=== PATIENT | male | born 1945 | race Caucasian/White ===

== ENCOUNTER 2016-07-30 15:45 | Inpatient (IN) | payer OTHER ==
[2016-07-30] MEDS ORDERED: DUONEB 0.5 MG/3 MG NEB ONE (16:00)
[2016-07-30] MEDS ORDERED: SOLU-Medrol 125 MG VIAL IVP ONE (16:02)
[2016-07-30] MEDS ORDERED: SOLU-Medrol 125 MG VIAL ONE (16:03)
[2016-07-30 16:39] LABS: BASOPHILS # (AUTO) 0.3 X10^3/uL (0.0-0.1); BASOPHILS % (AUTO) 1.2 % (0.2-1.0); EOSINOPHILS # (AUTO) 0.1 x10^3/uL (0.0-0.2); EOSINOPHILS % (AUTO) 0.3 % (0.9-2.9); HEMATOCRIT 42.1 % (42.0-54.0); HEMOGLOBIN 14.3 g/dL (13.5-18.0); LYMPHOCYTES # (AUTO) 2.8 X10^3/uL (1.3-2.9); LYMPHOCYTES % (AUTO) 11.5 % (21.0-51.0); MEAN CORPUSCULAR HEMOGLOBIN 28.2 pg (27.0-34.0); MEAN PLATELET VOLUME 9.5 fL (7.4-11.0); MONOCYTES # (AUTO) 1.1 x10^3/uL (0.3-0.8); MONOCYTES % (AUTO) 4.4 % (0.0-13.0); NEUTROPHILS # (AUTO) 19.9 x10^3/uL (2.2-4.8); NEUTROPHILS % (AUTO) 82.6 % (42.0-75.0); PLATELET COUNT 259 X10^3/uL (150.0-450.0); RED BLOOD COUNT 5.08 X10^6/uL (4.7-6.0); RED CELL DISTRIBUTION WIDTH 14.2 % (11.6-16.5)
--- NOTE | 2016-07-30 16:52 | DR.GENAD ---
HPI - PCP Primary Care Physician: NFD - HPI Comment HPI Comment: SICK FOR QNE AND HALF WEEK WITH FEVER, COUGH AND CHEST PAIN. GIVEN ANTIBIOTICS ANF PREDNISON, NO IMPROVEMENT. PATIENT HAVE FAIL OUT PATIENT TREATMENT. HIS CONDITION IS GETTING WORSE. - Complaint/Symptoms Chief Complaint Doctors Comments: INCREASING SOB, COUGH AND FEVER. Chief Complaint:: PT C/O SOB, C/C/C THAT HAS BEEN GOING ON FOR THE PAST WEEK AND A HALF. PT STATES HE HAS BEEN BEING TREATED WITH ANTIBIOTICS AND STERIODS FROM [facility]. PT'S STATES HE HAS WENT AND SEEN HIS LUNG DOCTOR THIS PAST WEEK. - Nurses notes reviewed Nurses Notes Review: Yes - Source History Provided: Patient - Mode of Arrival Mode of Arrival: Ambulatory - Timing Onset of Chief Complaint: 07/21/16 Came on: Gradually - Duration Duration: Constant Duration: Days - Severity Severity: Moderate PMH - PMH Past Medical History: Yes Past Medical History: COPD, Diabetes, Dyslipidemia, GERD, Hyperthyroidism Past Surgical History: Yes Surgical History: Appendectomy, Ortho Surgery - Family History History of Family Medical Conditions: No - Social History Does any household member use tobacco: No Alcohol Use: None Do you use any recreational Drugs:: No Lives With: Family Lives Where: Home - infectious screening In the last 2 months have you had wt loss of >10#?: NO Have you had fever, night sweats or hemotysis?: No Have you traveled outside the country in the last 6 months?: No Isolation: Standard ROS - Review of Systems Constitutional: Chills, Fever, Weakness, Fatigue, Loss of Appetite. negative: Diaphoresis Eyes: No Symptoms Reported. negative: Eye Pain, Discharge ENTM: Ear Pain, Nose Discharge, Nose Congestion. negative: Throat Pain Respiratoy: Productive Cough, Short of Breath, Wheezing. negative: Hemoptysis Cardiovascular: Chest Pain. negative: Edema, Palpitations, Syncope Gastrointestinal/Abdominal: negative: Abdominal Pain, Constipation, Diarrhea, Nausea, Vomiting Genitourinary: No Symptoms Reported. negative: Dysuria, Frequency, Hematuria Neurological: Headache, Weakness, Dizziness Musculoskeletal: Joint Pain, Joint Swelling, Muscle Pain Integumentary: No Symptoms Reported. negative: Change in Color, Rash, Juandice Hematologic/Lymphatic: Easy Bruising Endocrine: No Symptoms Reported All Other Systems: Reviewed and Negative PE - Vital Signs Vitals: Temperature 100.0 F Pulse Rate 108 Respiratory Rate 24 Blood Pressure 143/80 O2 Sat by Pulse Oximetry 95 - General Limitations: No Limitations General Appearance: Alert - Head Head Exam: Normal Inspection - Eyes Eye exam: Normal Appearance - ENT ENT Exam: Normal External Ear Exam External Ear Exam: Normal External Inspection TM/Canal Exam: Bilateral Normal Nose Exam: Normal Nose Exam Mouth Exam: Normal Inspection Throat Exam: Normal Inspection - Neck Neck Exam: Normal Inspection - Chest Chest Inspection: Symmetric Chest Wall Rise - Respiratory Respiratory Exam: Respiratory Distress. negative: Chest Wall Tenderness Respiratory Exam: Bilateral Wheezing, Bilateral Rhonchi, Upper Wheezing, Upper Rhonchi, Lower Wheezing, Lower Rhonchi - Cardiovascular Cardiovascular Exam: Regular Rate, Normal Rhythm, Normal Heart Sounds - Abdominal Exam Abdominal Exam: Normal Bowel Sounds, Soft. negative: Tenderness - Extremities Extremities Exam: Normal Inspection - Back Back Exam: Normal Inspection - Neurologic Neurological Exam: Alert, Oriented X3 - Psychiatric Psychiatric Exam: Anxious - Skin Skin Exam: Dry, Diaphoresis MDM - Differential Diagnosis Differential Diagnosis: COPD EXACERBATION, PNEUMONIA, CHF, PULMONARY EMBOLISM, ROR - Labs Reviewed Result Diagrams: 07/31/16 04:50 07/31/16 05:58 Laboratory: 07/30/16 16:00 Sputum - Expectorated Sputum - Final WBC 24.1 X10^3/uL (3.6-10.0) H* 07/30/16 16:20 RBC 5.08 X10^6/uL (4.7-6.0) 07/30/16 16:20 Hgb 14.3 g/dL (13.5-18.0) 07/30/16 16:20 Hct 42.1 % (42.0-54.0) 07/30/16 16:20 MCV 83.0 fL (80.0-100.0) 07/30/16 16:20 MCH 28.2 pg (27.0-34.0) 07/30/16 16:20 MCHC 34.0 g/dL (33.0-35.0) 07/30/16 16:20 RDW 14.2 % (11.6-16.5) 07/30/16 16:20 Plt Count 259 X10^3/uL (150.0-450.0) 07/30/16 16:20 Plt Count Comment Adequate (ADEQUATE) 07/30/16 16:20 MPV 9.5 fL (7.4-11.0) 07/30/16 16:20 Neut % 82.6 % (42.0-75.0) H 07/30/16 16:20 Lymph % 11.5 % (21.0-51.0) L 07/30/16 16:20 [place] % 4.4 % (0.0-13.0) 07/30/16 16:20 Eos % 0.3 % (0.9-2.9) L 07/30/16 16:20 Baso % 1.2 % (0.2-1.0) H 07/30/16 16:20 Neut # 19.9 x10^3/uL (2.2-4.8) H 07/30/16 16:20 Lymph # 2.8 X10^3/uL (1.3-2.9) 07/30/16 16:20 [place] # 1.1 x10^3/uL (0.3-0.8) H 07/30/16 16:20 Eos # 0.1 x10^3/uL (0.0-0.2) 07/30/16 16:20 Baso # 0.3 X10^3/uL (0.0-0.1) H 07/30/16 16:20 Absolute Nucleated RBC 0.0 /100WBC 07/30/16 16:20 Total Counted 100 07/30/16 16:20 Neutrophils % (Manual) 81 % (39-76) H 07/30/16 16:20 Band Neutrophils % 4 % (0-10) 07/30/16 16:20 Lymphocytes % (Manual) 8 % (13-43) L 07/30/16 16:20 Monocytes % (Manual) 6 % (4-9) 07/30/16 16:20 Eosinophils % (Manual) 1 % (0-6) 07/30/16 16:20 Plt Morphology Comment Normal (NORMAL) 07/30/16 16:20 RBC Morphology Abnormal (NORMAL) 07/30/16 16:20 Sodium 133 mmol/L (136-145) L 07/30/16 16:20 Corrected Sodium 140 mmol/L (136-145) 07/30/16 16:20 Potassium 4.3 mmol/L (3.5-5.1) 07/30/16 16:20 Chloride 102 mmol/L (98-107) 07/30/16 16:20 Carbon Dioxide 20.9 mmol/L (21-32) L 07/30/16 16:20 BUN 18 mg/dL (7-18) 07/30/16 16:20 Creatinine 1.48 mg/dL (0.70-1.30) H 07/30/16 16:20 Est GFR (MDRD) Af Amer 60 (>60) 07/30/16 16:20 Est GFR (MDRD) Non-Af 50 (>60) L 07/30/16 16:20 Glucose 388 mg/dL (65-99) H 07/30/16 16:20 Calcium 8.8 mg/dL (8.5-10.1) 07/30/16 16:20 Corrected Calcium 9.6 mg/dL (8.5-10.1) 07/30/16 16:20 Total Bilirubin 0.80 mg/dL (0.2-1.0) 07/30/16 16:20 AST 17 Units/L (15-37) 07/30/16 16:20 ALT 92 Units/L (12-78) H 07/30/16 16:20 Alkaline Phosphatase 112 Units/L (46-116) 07/30/16 16:20 Total Protein 6.6 g/dL (6.4-8.2) 07/30/16 16:20 Albumin 3.0 g/dL (3.4-5.0) L 07/30/16 16:20 Globulin 3.6 g/dL (2.5-4.5) 07/30/16 16:20 Albumin/Globulin Ratio 0.8 Ratio (1.1-2.1) L 07/30/16 16:20 - Diagnosis Discharge Problem: Community acquired bacterial pneumonia, COPD exacerbation Chest pain Qualifiers: Chest pain type: intercostal pain Qualified Code(s): R07.82 - Intercostal pain - Discharge Plan Disposition: ADMITTED INPATIENT Condition: Stable - Follow ups/Referrals - Instructions
[2016-07-30 16:53] LABS: CALCIUM 8.8 mg/dL (8.5-10.1); CARBON DIOXIDE 20.9 mmol/L (21-32); COR CA(FOR HYPOALB) 9.6 mg/dL (8.5-10.1); CREATININE 1.48 mg/dL (0.70-1.30); TOTAL PROTEIN 6.6 g/dL (6.4-8.2)
[2016-07-30 16:59] LABS: WHITE BLOOD COUNT 24.1 X10^3/uL (3.6-10.0)
[2016-07-30 17:00] LABS: BAND NEUTROPHILS % 4 % (0-10)
[2016-07-30 17:02] LABS: PLATELET MORPHOLOGY COMMENT NORMAL (NORMAL)
--- NOTE | 2016-07-30 17:37 | RAD ---
HISTORY: Difficulty breathing Study: PA and lateral Comparison: None Findings: The trachea is midline. The cardiac silhouette is unremarkable. There is some hazy subsegmental le ft retrocardiac opacity. No effusion is seen. IMPRESSION: Questionable mild left retrocardiac atelectasis or early infiltrate. Recommend followup. Reported By:
[2016-07-30] MEDS ORDERED: LEVAQUIN PREMIX IV 750 MG 750 MG/150 ML BAG IV ONE ×2 (17:40→18:17)
[2016-07-30] MEDS ORDERED: NS 1/2 1000 ML IV 1,000 ML IV ONE (18:17)
[2016-07-30] MEDS ORDERED: TUSSIONEX PENNKINETIC SUSP PO PRN (18:39)
[2016-07-30] MEDS: NS 1/2 1000 ML IV 1,000 ML IV SCH (18:48)
[2016-07-30] MEDS: DUONEB 0.5 MG/3 MG NEB SCH (21:42)
[2016-07-30] MEDS: ROBITUSSIN DM PO SCH (21:48)
[2016-07-30] MEDS ORDERED: HumuLIN R SUBCUT ONE (21:48)
[2016-07-30] MEDS: SNACK - Diabetic Appropriate PO SCH (21:49)
[2016-07-30] MEDS: LEVAQUIN PREMIX IV 750 MG 750 MG/150 ML BAG IV SCH (21:50)
[2016-07-30] MEDS: GLUCOPHAGE XR PO SCH (22:48)
[2016-07-30 23:18] LABS: CKMB % 3.2 % (<4); CREATINE KINASE 31 Units/L (39-308); CREATINE KINASE MB < 1.0 ng/mL (0-4.0); TROPONIN I < 0.02 ng/mL (0-1.5)
[2016-07-30 23:31] VITALS: BMI 29.7
[2016-07-31] MEDS: DUONEB 0.5 MG/3 MG NEB SCH ×6 (01:30→20:39)
[2016-07-31 06:05] LABS: ALANINE AMINOTRANSFERASE 77 Units/L (12-78); ALBUMIN 2.6 g/dL (3.4-5.0); ALKALINE PHOSPHATASE 100 Units/L (46-116); ASPARTATE AMINO TRANSFERASE 14 Units/L (15-37); BLOOD UREA NITROGEN 27 mg/dL (7-18); CALCIUM 8.3 mg/dL (8.5-10.1); CHLORIDE 99 mmol/L (98-107); CKMB % 3.1 % (<4); COR CA(FOR HYPOALB) 9.4 mg/dL (8.5-10.1); CREATINE KINASE 32 Units/L (39-308); CREATINE KINASE MB < 1.0 ng/mL (0-4.0); CREATININE 1.48 mg/dL (0.70-1.30); SODIUM 129 mmol/L (136-145); TROPONIN I < 0.02 ng/mL (0-1.5); eGFR BLACK RACES 60 (>60); eGFR NON BLACK RACES 50 (>60)
[2016-07-31 06:10] LABS: COR NA(FOR HYPERGLY) 141 mmol/L (136-145); GLUCOSE 620 mg/dL (65-99)
[2016-07-31] MEDS ORDERED: HumuLIN R SUBCUT ONE (06:31)
[2016-07-31 06:47] LABS: BASOPHILS # (AUTO) 0.1 X10^3/uL (0.0-0.1); BASOPHILS % (AUTO) 0.3 % (0.2-1.0); HEMATOCRIT 39.7 % (42.0-54.0); HEMOGLOBIN 12.9 g/dL (13.5-18.0); LYMPHOCYTES # (AUTO) 0.6 X10^3/uL (1.3-2.9); LYMPHOCYTES % (AUTO) 2.6 % (21.0-51.0); MEAN CORPUSCULAR HGB CONC 32.5 g/dL (33.0-35.0); MEAN CORPUSCULAR VOLUME 86.1 fL (80.0-100.0); MEAN PLATELET VOLUME 9.7 fL (7.4-11.0); MONOCYTES # (AUTO) 0.2 x10^3/uL (0.3-0.8); NEUTROPHILS # (AUTO) 21.4 x10^3/uL (2.2-4.8); NEUTROPHILS % (AUTO) 96.1 % (42.0-75.0); PLATELET COUNT 221 X10^3/uL (150.0-450.0); RED BLOOD COUNT 4.61 X10^6/uL (4.7-6.0); RED CELL DISTRIBUTION WIDTH 14.3 % (11.6-16.5)
[2016-07-31 06:58] LABS: WHITE BLOOD COUNT 22.3 X10^3/uL (3.6-10.0)
[2016-07-31 07:38] LABS: BAND NEUTROPHILS % 4 % (0-10); PLATELET MORPHOLOGY COMMENT NORMAL (NORMAL)
[2016-07-31] MEDS ORDERED: NS 1/2 1000 ML IV 1,000 ML IV ONE (09:42)
[2016-07-31] MEDS: GLUCOPHAGE XR PO SCH ×2 (09:43→22:09)
[2016-07-31] MEDS: ROBITUSSIN DM PO SCH ×4 (09:43→22:14)
[2016-07-31] MEDS: LEVAQUIN PREMIX IV 750 MG 750 MG/150 ML BAG IV SCH (09:43)
[2016-07-31] MEDS: NS 1/2 1000 ML IV 1,000 ML IV SCH (09:43)
[2016-07-31] MEDS ORDERED: PATIENT'S HOME MEDICATION (Cetirizine Hcl [Zyrtec Allergy] 10 MG) PO SCH (11:30)
[2016-07-31] MEDS ORDERED: MINERALS PO SCH (11:30)
[2016-07-31] MEDS ORDERED: PATIENT'S HOME MEDICATION (Budesonide-Formoterol 1 PUFF) IN SCH (11:30)
[2016-07-31] MEDS ORDERED: MULTIPLE VITAMINS PO SCH (11:30)
[2016-07-31] MEDS ORDERED: [UNRECOGNIZED DRUG - OTHER] PO SCH (11:30)
[2016-07-31] MEDS ORDERED: GLIMEPIRIDE 1 MG PO SCH (11:30)
[2016-07-31] MEDS ORDERED: GLUCOPHAGE XR PO SCH (12:00)
[2016-07-31] MEDS: MUCOMYST 20% 200 MG/ML NEB SCH ×3 (12:18→20:39)
[2016-07-31] MEDS: ALBUMIN HUMAN 25%- 100ML 100 ML IV SCH (12:31)
[2016-07-31] MEDS: [UNRECOGNIZED DRUG - OTHER] ENOSTRIL SCH ×2 (12:32→22:11)
[2016-07-31] MEDS: HumuLIN R SUBCUT PRN ×3 (12:33→22:06)
[2016-07-31] MEDS: TAB-A-VITE PO SCH (12:35)
[2016-07-31] MEDS: PriLOSEC PO SCH ×2 (12:35→22:09)
[2016-07-31] MEDS: ZyrTEC TAB 10 MG PO SCH (12:35)
[2016-07-31] MEDS: NORVASC TAB 5 MG PO SCH (12:35)
[2016-07-31] MEDS: MUCINEX DM PO SCH ×2 (12:35→22:11)
[2016-07-31] MEDS: AMARYL TAB 4 MG PO SCH (12:39)
--- NOTE | 2016-07-31 17:16 | DR.H&P ---
H&P - History & Physical for Day of: H&P Date: 07/30/16 - Chief Complaint Chief Complaint: chest Pain, Shortness of Breath and fever - Allergies Allergies/Adverse Reactions: Allergies Allergy/AdvReac Type Severity Reaction Status Date / Time Codeine Allergy Verified 07/30/16 15:46 Penicillins Allergy Verified 07/30/16 15:46 Homatropine [From Hycodan] AdvReac Mild Verified 07/31/16 04:58 Hydrocodone [From Hycodan] AdvReac Mild Verified 07/31/16 04:58 - History of Present Illness History of Present Illness: Patient is a 71 yo white male who presented to the emergency room with complaints of fever, cough, congestion and chest pain which has been going on for one and half weeks, he has been treated outpatient with oral antibiotics and steroids and has not gotten any better he was seen at [facility]. Patient has a past medical history of COPD, DM, Dyslipidemia, GERD and Hyperthyroidism. Patients physical exam revealed resp distress with bilateral wheezing and rhochi. Vital signs on arrival were 100.0, 108, 24, 95% on RA and 143/80. Labs were within normal limits with the exception of WBC 24.1 , Neut% 82.6, Lymph% 11.5, Eos% 0.3, Baso% 1.2, Neut# 19.9, [place]# 1.1, Baso# 0.3 , Sodium 133, Carbon Dioxide 20.9, Creatinine 1.48, Est GFR 50, Glucose 388, ALT 92, Albumin 3.0, Albumin/Globulin Ratio 0.8. chest Xray revealed questionable mild left rertrocardiac atelectasis or early infiltrate. Patient was admitted with diagnosis of pneumonia and started on the pneumonia protocol including 1/2NS @75, Duonebs, Levaquin and supplemental oxygen. 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) Does any household member use tobacco: No Alcohol Use: None Drug Use: None - Medications Home Medications: Amlodipine Besylate [NORVASC 5 MG *] 5 mg PO DAILY 07/30/16 [History Confirmed 07/30/16] Atorvastatin Calcium [Lipitor Tab 40 mg] 40 mg PO HS 07/30/16 [History Confirmed 07/31/16] Azelastine HCl-Fluticasone Pro [Dymista 137-50 Mcg/Act] 2 spr ENOSTRIL BID 07/30 [History Confirmed 07/31/16] Budesonide-Formoterol [SYMBICORT INH 160/4.5 mcg] 1 puff IN Q12H 07/30/16 [ History Confirmed 07/30/16] Cetirizine HCl [Zyrtec Allergy] 10 mg PO DAILY 07/30/16 [History Confirmed 07/30] Clarithromycin [Biaxin] 500 mg PO BID 07/30/16 [History Confirmed 07/30/16] Glimepiride [Amaryl 1 mg] 1 mg PO DAILY 07/30/16 [History Confirmed 07/30/16] Levothyroxine Sodium [SYNTHROID 50 mcg *] 1 tab PO DAILYAC 07/30/16 [History Confirmed 07/30/16] Metformin HCl [Metformin HCl ER] 500 mg PO BID 07/30/16 [History Confirmed 07/30] Misc Home Med [Patient's Home Medication] 1 ea PO Q6H PRN 07/30/16 [History Confirmed 07/30/16] Multiple Vitamin [Multi Vitamin] 1 tab PO DAILY 07/30/16 [History Confirmed 01/05] Multiple Vitamins W/ Minerals [Vision Formula Eye Health] 1 cap PO DAILY [History Confirmed 07/30/16] Omeprazole [Prilosec] 20 mg PO BID 07/30/16 [History Confirmed 07/30/16] Prednisone [Prednisone Tab 10 mg] 1 dose PO . DIRECTED 07/30/16 [History Confirmed 07/30/16] Insulin Detemir (Levemir) [LEVEMIR INSULIN *] 60 units SC HS 07/31/16 [History Confirmed 07/31/16] - Review of Systems Constitutional: Fever, Sweats, Weakness Eyes: No Symptoms Reported ENT: No Symptoms Reported Respiratory: Cough, Shortness of Breath, Wheezing Cardiovascular: Chest Pain Gastrointestinal: No Symptoms Reported Genitourinary: No Symptoms Reported Musculoskeletal: No Symptoms Reported Skin: No Symptoms Reported Neurological: No Symptoms Reported - Physical Exam Vital Signs: 100.0, 108, 24, 95% on RA and 143/80 Oriented: Normal Eyes: Normal Ear: Normal Nose: Normal Throat: Normal Respiratory: Rhonchi Throughout (Coarse Rhonchi Bilateral) Cardiovascular: Normal : Normal Auscultation: Bowel Sounds: Normal Palpation: Normal Tenderness: Normal Skin: Normal Musculoskeletal: Normal Psychiatric: Normal Mood Description: Calm, Appropriate Affect: Normal Speech Pattern: Clear, Appropriate - Assessment/Plan (1) Pneumonia Qualifiers: Pneumonia type: P Aspiration pneumonia type: A Laterality: L Lung location: L Status: Acute Plan: pneumonia protocol, duonebs, supplemental oxygen, levaquin IV
--- NOTE | 2016-07-31 17:20 | PCM.PROG ---
Progress Note - Progress Note for Day of Date: 07/31/16 - Subjective Subjective: Patient is a 71yo white male who was admitted with diagnosis of pneumonia and was started on IV Antibiotics. Patient states he is still felling pretty rough this am. Physical exam reveals coarse rhonchi bilateral. WBC 22.3, RBC 4.61, Hgb 12.9, Hct 39.7, MCHC 32.5, Neut% 96.1, Lymph% 2.6, Eos% 0.0, Neut # 21.4, Lymph# 0.6, [place]# 0.2, Sodium 129, Carbon Dioxide 18.0, BUN 27, Creatinine 1.48, Est GFR 50, Glucose 620, Calcium 8.3, AST 14, Creatinine Kinase 32, Total Protein 6.0, Albumin 2.6, Albumin Globulin Ratio 0.8, We are going to start him on Albumin IV, Resume his home medications, and add mucinex PO and mucomyst to his nebulizer treatment. Will follow up in the am with labs and Chest Xray. Vital signs this am are 97.7, 103, 24, 96% on NC, 151/72 - Past Medical Family Social History Past Med/Fam/Surg Hx: No changes since H&P Allergies: Allergies Codeine Allergy (Verified 07/30/16 15:46) Penicillins Allergy (Verified 07/30/16 15:46) Homatropine [From Hycodan] Adverse Reaction (Mild, Verified 07/31/16 04:58) Patient states that it makes him itch really bad. Hydrocodone [From Hycodan] Adverse Reaction (Mild, Verified 07/31/16 04:58) Patient states that it makes him itch really bad. - Review of Systems ROS: No change since H&P - Vital Signs and I&O's Vital Signs: 97.7, 103, 24, 96% on NC, 151/72 Intake and Output: Intake & Output 07/29/16 07/30/16 07/31/16 08/01/16 11:59 11:59 11:59 11:59 Intake Total 1060 560 Output Total 1725 1900 Balance -696 -7890 - Physical Exam Oriented: Normal Eyes: Normal Ear: Normal Nose: Normal Throat: Normal Respiratory: Rhonchi (Coarse Rhonchi bilateral) Cardiovascular: Normal : Normal Auscultation: Bowel Sounds: Normal Tenderness: Normal Skin: Normal Musculoskeletal: Normal Psychiatric: Normal Mood Description: Calm, Appropriate Affect: Normal Speech Pattern: Clear, Appropriate - Laboratory and Diagnostics Result Diagrams: 07/31/16 04:50 07/31/16 05:58 Labs: Laboratory WBC 22.3 X10^3/uL (3.6-10.0) H* 07/31/16 04:50 RBC 4.61 X10^6/uL (4.7-6.0) L 07/31/16 04:50 Hgb 12.9 g/dL (13.5-18.0) L 07/31/16 04:50 Hct 39.7 % (42.0-54.0) L 07/31/16 04:50 MCV 86.1 fL (80.0-100.0) 07/31/16 04:50 MCH 28.0 pg (27.0-34.0) 07/31/16 04:50 MCHC 32.5 g/dL (33.0-35.0) L 07/31/16 04:50 RDW 14.3 % (11.6-16.5) 07/31/16 04:50 Plt Count 221 X10^3/uL (150.0-450.0) 07/31/16 04:50 Plt Count Comment Adequate (ADEQUATE) 07/31/16 04:50 MPV 9.7 fL (7.4-11.0) 07/31/16 04:50 Neut % 96.1 % (42.0-75.0) H 07/31/16 04:50 Lymph % 2.6 % (21.0-51.0) L 07/31/16 04:50 [place] % 1.0 % (0.0-13.0) 07/31/16 04:50 Eos % 0.0 % (0.9-2.9) L 07/31/16 04:50 Baso % 0.3 % (0.2-1.0) 07/31/16 04:50 Neut # 21.4 x10^3/uL (2.2-4.8) H 07/31/16 04:50 Lymph # 0.6 X10^3/uL (1.3-2.9) L 07/31/16 04:50 [place] # 0.2 x10^3/uL (0.3-0.8) L 07/31/16 04:50 Eos # 0.0 x10^3/uL (0.0-0.2) 07/31/16 04:50 Baso # 0.1 X10^3/uL (0.0-0.1) 07/31/16 04:50 Absolute Nucleated RBC 0.0 /100WBC 07/31/16 04:50 Total Counted 100 07/31/16 04:50 Neutrophils % (Manual) 92 % (39-76) H 07/31/16 04:50 Band Neutrophils % 4 % (0-10) 07/31/16 04:50 Lymphocytes % (Manual) 4 % (13-43) L 07/31/16 04:50 Monocytes % (Manual) 6 % (4-9) 07/30/16 16:20 Eosinophils % (Manual) 1 % (0-6) 07/30/16 16:20 Plt Morphology Comment Normal (NORMAL) 07/31/16 04:50 RBC Morphology Normal (NORMAL) 07/31/16 04:50 Sodium 129 mmol/L (136-145) L 07/31/16 04:50 Corrected Sodium 141 mmol/L (136-145) 07/31/16 04:50 Potassium 4.8 mmol/L (3.5-5.1) 07/31/16 04:50 Chloride 99 mmol/L (98-107) 07/31/16 04:50 Carbon Dioxide 18.0 mmol/L (21-32) L 07/31/16 04:50 BUN 27 mg/dL (7-18) H 07/31/16 04:50 Creatinine 1.48 mg/dL (0.70-1.30) H 07/31/16 04:50 Est GFR (MDRD) Af Amer 60 (>60) 07/31/16 04:50 Est GFR (MDRD) Non-Af 50 (>60) L 07/31/16 04:50 Glucose 656 mg/dL (65-99) H* 07/31/16 05:58 Calcium 8.3 mg/dL (8.5-10.1) L 07/31/16 04:50 Corrected Calcium 9.4 mg/dL (8.5-10.1) 07/31/16 04:50 Total Bilirubin 0.40 mg/dL (0.2-1.0) 07/31/16 04:50 AST 14 Units/L (15-37) L 07/31/16 04:50 ALT 77 Units/L (12-78) 07/31/16 04:50 Alkaline Phosphatase 100 Units/L (46-116) 07/31/16 04:50 Creatine Kinase 32 Units/L (39-308) L 07/31/16 04:50 CK-MB (CK-2) < 1.0 ng/mL (0-4.0) 07/31/16 04:50 CK/CKMB % Calc 3.1 % (<4) 07/31/16 04:50 Troponin I < 0.02 ng/mL (0-1.5) 07/31/16 04:50 Total Protein 6.0 g/dL (6.4-8.2) L 07/31/16 04:50 Albumin 2.6 g/dL (3.4-5.0) L 07/31/16 04:50 Globulin 3.4 g/dL (2.5-4.5) 07/31/16 04:50 Albumin/Globulin Ratio 0.8 Ratio (1.1-2.1) L 07/31/16 04:50 - Plan (1) Pneumonia Status: Acute Qualifiers: Pneumonia type: P Aspiration pneumonia type: A Laterality: L Lung location: L Plan: pneumonia protocol, duonebs, supplemental oxygen, levaquin IV (2) Hypoalbuminemia Status: Acute Plan: IV Albumin (3) Hypertension Status: Acute Qualifiers: Hypertension type: H Plan: continue home medication including norvasc (4) Diabetes mellitus, type 2 Status: Acute Qualifiers: Diabetes mellitus complication status: D Diabetes mellitus complication detail: D Diabetic retinopathy severity: D Proliferative retinopathy type: P Diabetes mellitus macular edema: D 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
[2016-07-31] MEDS: SYNTHROID 50 mcg TAB PO SCH (18:35)
[2016-07-31] MEDS: LEVEMIR SC SCH (22:05)
[2016-07-31] MEDS: SNACK - Diabetic Appropriate PO SCH (22:10)
[2016-07-31] MEDS: LIPITOR TAB 40 MG PO SCH (22:11)
[2016-08-01] MEDS ORDERED: NS 1/2 1000 ML IV 1,000 ML IV ONE ×2 (00:06→19:01)
[2016-08-01] MEDS: NS 1/2 1000 ML IV 1,000 ML IV SCH ×2 (00:11→16:43)
[2016-08-01] MEDS: MUCOMYST 20% 200 MG/ML NEB SCH ×6 (01:08→21:26)
[2016-08-01] MEDS: DUONEB 0.5 MG/3 MG NEB SCH ×6 (01:08→21:26)
[2016-08-01 06:00] LABS: BASOPHILS % (AUTO) 0.1 % (0.2-1.0); EOSINOPHILS % (AUTO) 0.1 % (0.9-2.9); HEMOGLOBIN 12.1 g/dL (13.5-18.0); MEAN PLATELET VOLUME 9.6 fL (7.4-11.0); RED BLOOD COUNT 4.38 X10^6/uL (4.7-6.0); RED CELL DISTRIBUTION WIDTH 14.2 % (11.6-16.5)
--- NOTE | 2016-08-01 06:00 | RAD ---
HISTORY: Shortness of breath Study: Chest one view Comparison: July 30, 2016 Findings: The trachea is midline. The cardiac silhouette is enlarged. No congestive heart failure is noted.. The lungs are clear without focal infiltrate or effusion. There is a focus of subsegmental atelect asis in the right lung base. The bony thorax is unremarkable. IMPRESSION: 1. Cardiomegaly without congestive heart failure 2. Subsegmental atelectasis right lung base Reported By:
[2016-08-01 06:09] LABS: HEMATOCRIT 36.4 % (42.0-54.0); LYMPHOCYTES # (AUTO) 1.7 X10^3/uL (1.3-2.9); LYMPHOCYTES % (AUTO) 6.9 % (21.0-51.0); MEAN CORPUSCULAR HEMOGLOBIN 27.7 pg (27.0-34.0); MEAN CORPUSCULAR HGB CONC 33.3 g/dL (33.0-35.0); MEAN CORPUSCULAR VOLUME 83.2 fL (80.0-100.0); MONOCYTES # (AUTO) 1.1 x10^3/uL (0.3-0.8); MONOCYTES % (AUTO) 4.6 % (0.0-13.0); NEUTROPHILS # (AUTO) 22.1 x10^3/uL (2.2-4.8); NEUTROPHILS % (AUTO) 88.3 % (42.0-75.0); PLATELET COUNT 238 X10^3/uL (150.0-450.0)
[2016-08-01] MEDS: AMARYL TAB 4 MG PO SCH (06:19)
[2016-08-01 06:23] LABS: ERYTHROCYTE SEDIMENTATION RATE 25 MM/HOUR (0-15)
[2016-08-01] MEDS: HumuLIN R SUBCUT PRN ×3 (06:25→20:52)
[2016-08-01 06:29] LABS: ALANINE AMINOTRANSFERASE 61 Units/L (12-78); ALBUMIN 2.8 g/dL (3.4-5.0); ALKALINE PHOSPHATASE 86 Units/L (46-116); ASPARTATE AMINO TRANSFERASE 11 Units/L (15-37); BAND NEUTROPHILS % 2 % (0-10); BLOOD UREA NITROGEN 18 mg/dL (7-18); CALCIUM 8.8 mg/dL (8.5-10.1); CARBON DIOXIDE 21.4 mmol/L (21-32); CHLORIDE 107 mmol/L (98-107); COR CA(FOR HYPOALB) 9.8 mg/dL (8.5-10.1); COR NA(FOR HYPERGLY) 143 mmol/L (136-145); GLUCOSE 293 mg/dL (65-99); PLATELET MORPHOLOGY COMMENT NORMAL (NORMAL); SODIUM 138 mmol/L (136-145); eGFR BLACK RACES > 60 (>60); eGFR NON BLACK RACES > 60 (>60)
[2016-08-01] MEDS: ROBITUSSIN DM PO SCH ×4 (08:44→21:30)
[2016-08-01] MEDS: GLUCOPHAGE XR PO SCH ×2 (08:44→20:43)
[2016-08-01] MEDS: MUCINEX DM PO SCH ×2 (08:44→20:43)
[2016-08-01] MEDS: PriLOSEC PO SCH ×2 (08:44→20:43)
[2016-08-01] MEDS: TAB-A-VITE PO SCH (08:45)
[2016-08-01] MEDS: ZyrTEC TAB 10 MG PO SCH (08:45)
[2016-08-01] MEDS: [UNRECOGNIZED DRUG - OTHER] ENOSTRIL SCH ×2 (08:45→20:42)
[2016-08-01] MEDS: ALBUMIN HUMAN 25%- 100ML 100 ML IV SCH (08:45)
[2016-08-01] MEDS: NORVASC TAB 5 MG PO SCH (08:45)
[2016-08-01] MEDS: LEVAQUIN PREMIX IV 750 MG 750 MG/150 ML BAG IV SCH (10:16)
--- NOTE | 2016-08-01 10:33 | PCM.PROG ---
Progress Note - Progress Note for Day of Date: 08/01/16 - Subjective Subjective: Patient is a 71yo white male who was admitted with diagnosis of pneumonia and was started on IV Antibiotics. Patient states he is still felling pretty rough this am. Physical exam reveals rhonchi throughout. [place] is still coughing and his WBC has increased to 25.o this am. We are going to add fortaz IV to his current regimen of Levaquin. His sputum culture grew out Acinetobacter Baumanii/Haemoly, which is sensitive to both fortaz and Levaquin. Labs are within normal limits with the exception of WBC 25.0, RBC 4.38, Hgb 12.1 , Hct 36.4, Neut% 88.3, Lymph% 6.9, Eos% 0.1, Baso% 0.1, Neut# 22.1, [place]# 1.1, ESR 25, Glucose 293, AST 11, CRP 37.60, Total Protein 6.0, Albumin 2.8, Albumin/ Globulin Ratio 0.9. Chest Xray shows cardiomegaly without CHF, subsegmental atelectasis in right lung base. Vital Signs 97.7, 90, 20, 98%, 130/63. Patient also complaining of not be able to sleep at night so we are going to ass klonopin 1mg at bedtime. - Past Medical Family Social History Past Med/Fam/Surg Hx: No changes since H&P Allergies: Allergies Codeine Allergy (Verified 07/30/16 15:46) Penicillins Allergy (Verified 07/30/16 15:46) Homatropine [From Hycodan] Adverse Reaction (Mild, Verified 07/31/16 04:58) Patient states that it makes him itch really bad. Hydrocodone [From Hycodan] Adverse Reaction (Mild, Verified 07/31/16 04:58) Patient states that it makes him itch really bad. - Review of Systems ROS: No change since H&P - Vital Signs and I&O's Vital Signs: Vital Signs 97.7, 90, 20, 98%, 130/63 Intake and Output: Intake & Output 07/29/16 07/30/16 07/31/16 08/01/16 11:59 11:59 11:59 11:59 Intake Total 1060 2366 Output Total 1725 1900 Balance -665 466 - Physical Exam Oriented: Normal Eyes: Normal Ear: Normal Nose: Normal Throat: Normal Respiratory: Rhonchi (Scattered Rhonchi) Cardiovascular: Normal : Normal Auscultation: Bowel Sounds: Normal Tenderness: Normal Skin: Normal Musculoskeletal: Normal Psychiatric: Normal Mood Description: Calm, Appropriate Affect: Normal Speech Pattern: Clear, Appropriate - Laboratory and Diagnostics Result Diagrams: 08/01/16 03:55 08/01/16 03:55 Labs: Laboratory WBC 25.0 X10^3/uL (3.6-10.0) H* 08/01/16 03:55 RBC 4.38 X10^6/uL (4.7-6.0) L 08/01/16 03:55 Hgb 12.1 g/dL (13.5-18.0) L 08/01/16 03:55 Hct 36.4 % (42.0-54.0) L 08/01/16 03:55 MCV 83.2 fL (80.0-100.0) 08/01/16 03:55 MCH 27.7 pg (27.0-34.0) 08/01/16 03:55 MCHC 33.3 g/dL (33.0-35.0) 08/01/16 03:55 RDW 14.2 % (11.6-16.5) 08/01/16 03:55 Plt Count 238 X10^3/uL (150.0-450.0) 08/01/16 03:55 Plt Count Comment Adequate (ADEQUATE) 08/01/16 03:55 MPV 9.6 fL (7.4-11.0) 08/01/16 03:55 Neut % 88.3 % (42.0-75.0) H 08/01/16 03:55 Lymph % 6.9 % (21.0-51.0) L 08/01/16 03:55 [place] % 4.6 % (0.0-13.0) 08/01/16 03:55 Eos % 0.1 % (0.9-2.9) L 08/01/16 03:55 Baso % 0.1 % (0.2-1.0) L 08/01/16 03:55 Neut # 22.1 x10^3/uL (2.2-4.8) H 08/01/16 03:55 Lymph # 1.7 X10^3/uL (1.3-2.9) 08/01/16 03:55 [place] # 1.1 x10^3/uL (0.3-0.8) H 08/01/16 03:55 Eos # 0.0 x10^3/uL (0.0-0.2) 08/01/16 03:55 Baso # 0.0 X10^3/uL (0.0-0.1) 08/01/16 03:55 Absolute Nucleated RBC 0.0 /100WBC 08/01/16 03:55 Total Counted 100 08/01/16 03:55 Neutrophils % (Manual) 83 % (39-76) H 08/01/16 03:55 Band Neutrophils % 2 % (0-10) 08/01/16 03:55 Lymphocytes % (Manual) 13 % (13-43) 08/01/16 03:55 Monocytes % (Manual) 2 % (4-9) L 08/01/16 03:55 Eosinophils % (Manual) 1 % (0-6) 07/30/16 16:20 Plt Morphology Comment Normal (NORMAL) 08/01/16 03:55 RBC Morphology Normal (NORMAL) 08/01/16 03:55 ESR 25 MM/HOUR (0-15) H 08/01/16 03:55 Sodium 138 mmol/L (136-145) 08/01/16 03:55 Corrected Sodium 143 mmol/L (136-145) 08/01/16 03:55 Potassium 3.8 mmol/L (3.5-5.1) 08/01/16 03:55 Chloride 107 mmol/L (98-107) 08/01/16 03:55 Carbon Dioxide 21.4 mmol/L (21-32) 08/01/16 03:55 BUN 18 mg/dL (7-18) 08/01/16 03:55 Creatinine 1.20 mg/dL (0.70-1.30) 08/01/16 03:55 Est GFR (MDRD) Af Amer > 60 (>60) 08/01/16 03:55 Est GFR (MDRD) Non-Af > 60 (>60) 08/01/16 03:55 Glucose 293 mg/dL (65-99) H 08/01/16 03:55 Calcium 8.8 mg/dL (8.5-10.1) 08/01/16 03:55 Corrected Calcium 9.8 mg/dL (8.5-10.1) 08/01/16 03:55 Total Bilirubin 0.30 mg/dL (0.2-1.0) 08/01/16 03:55 AST 11 Units/L (15-37) L 08/01/16 03:55 ALT 61 Units/L (12-78) 08/01/16 03:55 Alkaline Phosphatase 86 Units/L (46-116) 08/01/16 03:55 Creatine Kinase 32 Units/L (39-308) L 07/31/16 04:50 CK-MB (CK-2) < 1.0 ng/mL (0-4.0) 07/31/16 04:50 CK/CKMB % Calc 3.1 % (<4) 07/31/16 04:50 Troponin I < 0.02 ng/mL (0-1.5) 07/31/16 04:50 C-Reactive Protein 37.60 mg/L (0-3.0) H 08/01/16 03:55 Total Protein 6.0 g/dL (6.4-8.2) L 08/01/16 03:55 Albumin 2.8 g/dL (3.4-5.0) L 08/01/16 03:55 Globulin 3.2 g/dL (2.5-4.5) 08/01/16 03:55 Albumin/Globulin Ratio 0.9 Ratio (1.1-2.1) L 08/01/16 03:55 - Plan (1) Pneumonia Status: Acute Qualifiers: Pneumonia type: P Aspiration pneumonia type: A Laterality: L Lung location: L Plan: pneumonia protocol, duonebswith mucomyst, supplemental oxygen, levaquin IV and add fortaz, mucinex (2) Hypoalbuminemia Status: Acute Plan: IV Albumin (3) Hypertension Status: Acute Qualifiers: Hypertension type: H Plan: continue home medication including norvasc (4) Diabetes mellitus, type 2 Status: Acute Qualifiers: Diabetes mellitus complication status: D Diabetes mellitus complication detail: D Diabetic retinopathy severity: D Proliferative retinopathy type: P Diabetes mellitus macular edema: D 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
[2016-08-01] MEDS: FORTAZ or TAZICEF INJ 1 GM in NS 50 ML IV + SPIKE MINIBAG* 50 ML IV SCH ×3 (11:42→21:30)
[2016-08-01] MEDS: TYLENOL 325 MG TAB PO PRN (12:04)
[2016-08-01] MEDS: SYNTHROID 50 mcg TAB PO SCH (16:41)
[2016-08-01] MEDS: SNACK - Diabetic Appropriate PO SCH (20:43)
[2016-08-01] MEDS: LIPITOR TAB 40 MG PO SCH (20:45)
[2016-08-01] MEDS: LEVEMIR SC SCH (20:53)
[2016-08-01] MEDS ORDERED: KLONOPIN TAB 1 MG PO SCH (21:00)
[2016-08-02] MEDS: TYLENOL 325 MG TAB PO PRN ×2 (00:02→20:49)
[2016-08-02] MEDS: DUONEB 0.5 MG/3 MG NEB SCH ×6 (01:22→20:58)
[2016-08-02] MEDS: MUCOMYST 20% 200 MG/ML NEB SCH ×6 (01:22→20:58)
[2016-08-02] MEDS: NS 1/2 1000 ML IV 1,000 ML IV SCH ×2 (04:10→18:13)
--- NOTE | 2016-08-02 06:02 | RAD ---
HISTORY: Shortness of breath Study: Chest one view Comparison: August 01, 2016 Findings: The heart is enlarged. No congestive heart failure is noted. No acute alveolar infiltrates or pleura l effusions are identified. The bony thorax is unremarkable. IMPRESSION: Cardiomegaly without congestive heart failure Lungs clear Reported By:
[2016-08-02 06:20] LABS: BASOPHILS % (AUTO) 0.1 % (0.2-1.0); EOSINOPHILS % (AUTO) 0.2 % (0.9-2.9); HEMATOCRIT 37.6 % (42.0-54.0); HEMOGLOBIN 12.7 g/dL (13.5-18.0); LYMPHOCYTES # (AUTO) 1.9 X10^3/uL (1.3-2.9); LYMPHOCYTES % (AUTO) 8.8 % (21.0-51.0); MEAN CORPUSCULAR HEMOGLOBIN 27.9 pg (27.0-34.0); MEAN CORPUSCULAR HGB CONC 33.7 g/dL (33.0-35.0); MEAN CORPUSCULAR VOLUME 82.6 fL (80.0-100.0); MEAN PLATELET VOLUME 9.3 fL (7.4-11.0); MONOCYTES # (AUTO) 1.7 x10^3/uL (0.3-0.8); MONOCYTES % (AUTO) 8.1 % (0.0-13.0); NEUTROPHILS # (AUTO) 17.9 x10^3/uL (2.2-4.8); NEUTROPHILS % (AUTO) 82.8 % (42.0-75.0); PLATELET COUNT 208 X10^3/uL (150.0-450.0); RED BLOOD COUNT 4.55 X10^6/uL (4.7-6.0); RED CELL DISTRIBUTION WIDTH 14.1 % (11.6-16.5)
[2016-08-02] MEDS: AMARYL TAB 4 MG PO SCH (06:31)
[2016-08-02] MEDS: FORTAZ or TAZICEF INJ 1 GM in NS 50 ML IV + SPIKE MINIBAG* 50 ML IV SCH ×3 (06:38→21:02)
[2016-08-02 06:46] LABS: ALANINE AMINOTRANSFERASE 45 Units/L (12-78); ALBUMIN 2.7 g/dL (3.4-5.0); ALKALINE PHOSPHATASE 74 Units/L (46-116); BLOOD UREA NITROGEN 12 mg/dL (7-18); CALCIUM 8.7 mg/dL (8.5-10.1); CARBON DIOXIDE 23.5 mmol/L (21-32); CHLORIDE 103 mmol/L (98-107); COR CA(FOR HYPOALB) 9.7 mg/dL (8.5-10.1); COR NA(FOR HYPERGLY) 136 mmol/L (136-145); GLUCOSE 140 mg/dL (65-99); SODIUM 135 mmol/L (136-145); TOTAL PROTEIN 6.2 g/dL (6.4-8.2); eGFR BLACK RACES > 60 (>60); eGFR NON BLACK RACES > 60 (>60)
[2016-08-02 06:53] LABS: WHITE BLOOD COUNT 21.6 X10^3/uL (3.6-10.0)
[2016-08-02 07:16] LABS: ASPARTATE AMINO TRANSFERASE 12 Units/L (15-37)
[2016-08-02 07:46] LABS: ERYTHROCYTE SEDIMENTATION RATE 36 MM/HOUR (0-15)
[2016-08-02] MEDS: ALBUMIN HUMAN 25%- 100ML 100 ML IV SCH (09:17)
[2016-08-02] MEDS: LEVAQUIN PREMIX IV 750 MG 750 MG/150 ML BAG IV SCH (09:17)
[2016-08-02] MEDS: ROBITUSSIN DM PO SCH ×5 (09:20→20:58)
[2016-08-02] MEDS: TAB-A-VITE PO SCH (09:22)
[2016-08-02] MEDS: PriLOSEC PO SCH ×2 (09:22→20:49)
[2016-08-02] MEDS: MUCINEX DM PO SCH ×2 (09:23→20:58)
[2016-08-02] MEDS: ZyrTEC TAB 10 MG PO SCH (09:23)
[2016-08-02] MEDS: NORVASC TAB 5 MG PO SCH (09:23)
[2016-08-02] MEDS: GLUCOPHAGE XR PO SCH ×2 (09:23→20:49)
[2016-08-02] MEDS: [UNRECOGNIZED DRUG - OTHER] ENOSTRIL SCH ×2 (09:24→21:01)
[2016-08-02] MEDS: MORPHINE SULFATE INJ 2 MG IVP PRN ×2 (14:21→14:45)
--- NOTE | 2016-08-02 14:29 | PCM.PROG ---
Progress Note - Progress Note for Day of Date: 08/02/16 - Subjective Subjective: Patient is a 71yo male admitted with pneumonia, chest pain and shortness of breath. Patient is very drowsy this am we are going to decrease his mena of klonopin at night to 0.5mg. Patient spiked a fever of 102.2 twice last night at 2000 and midnight. His WBC has came down to 21.6 form 25.0. He lungs are still noted to have some scattered rhochi but is improving we are going to continue with his current treatment of fortaz and levaquin IV, duonebs with mucomyst. Vitals signs this am are 99.5, 105, 22, 92%, 137/76. Labs are within normal limits with the exception of WBC 21.6, RBC 4.55, Hgb 12.7, Hct 37.6, Neut% 82.8, Lymph% 8.8, Eos% 0.2, Baso% 0.1, Neut# 17.9, [place]# 1.7, ESR 36 , Sodium 135, Glucose 140, AST 12, CRP 110.10, Total Protein 6.2, Albumin 2.7, Albumin/Globulin Ratio 0.8. Chest Xray this am shows cardiomegaly without CHF, lungs are clear. We will follow up in the am with repeat labs. - Past Medical Family Social History Past Med/Fam/Surg Hx: No changes since H&P Allergies: Allergies Codeine Allergy (Verified 07/30/16 15:46) Penicillins Allergy (Verified 07/30/16 15:46) Homatropine [From Hycodan] Adverse Reaction (Mild, Verified 07/31/16 04:58) Patient states that it makes him itch really bad. Hydrocodone [From Hycodan] Adverse Reaction (Mild, Verified 07/31/16 04:58) Patient states that it makes him itch really bad. - Review of Systems ROS: No change since H&P - Vital Signs and I&O's Vital Signs: 99.5, 105, 22, 92%, 137/76 Intake and Output: Intake & Output 07/31/16 08/01/16 08/02/16 08/03/16 11:59 11:59 11:59 11:59 Intake Total 1060 2366 1560 Output Total 1725 1900 900 Balance -665 466 660 - Physical Exam Oriented: Normal Eyes: Normal Ear: Normal Nose: Normal Throat: Normal Respiratory: Rhonchi (Scattered Rhonchi) Cardiovascular: Normal : Normal Auscultation: Bowel Sounds: Normal Tenderness: Normal Skin: Normal Musculoskeletal: Normal Psychiatric: Normal Mood Description: Calm, Appropriate Affect: Normal Speech Pattern: Clear, Appropriate - Laboratory and Diagnostics Result Diagrams: 08/02/16 05:39 08/02/16 05:39 Labs: Laboratory WBC 21.6 X10^3/uL (3.6-10.0) H* 08/02/16 05:39 RBC 4.55 X10^6/uL (4.7-6.0) L 08/02/16 05:39 Hgb 12.7 g/dL (13.5-18.0) L 08/02/16 05:39 Hct 37.6 % (42.0-54.0) L 08/02/16 05:39 MCV 82.6 fL (80.0-100.0) 08/02/16 05:39 MCH 27.9 pg (27.0-34.0) 08/02/16 05:39 MCHC 33.7 g/dL (33.0-35.0) 08/02/16 05:39 RDW 14.1 % (11.6-16.5) 08/02/16 05:39 Plt Count 208 X10^3/uL (150.0-450.0) 08/02/16 05:39 Plt Count Comment Adequate (ADEQUATE) 08/01/16 03:55 MPV 9.3 fL (7.4-11.0) 08/02/16 05:39 Neut % 82.8 % (42.0-75.0) H 08/02/16 05:39 Lymph % 8.8 % (21.0-51.0) L 08/02/16 05:39 [place] % 8.1 % (0.0-13.0) 08/02/16 05:39 Eos % 0.2 % (0.9-2.9) L 08/02/16 05:39 Baso % 0.1 % (0.2-1.0) L 08/02/16 05:39 Neut # 17.9 x10^3/uL (2.2-4.8) H 08/02/16 05:39 Lymph # 1.9 X10^3/uL (1.3-2.9) 08/02/16 05:39 [place] # 1.7 x10^3/uL (0.3-0.8) H 08/02/16 05:39 Eos # 0.0 x10^3/uL (0.0-0.2) 08/02/16 05:39 Baso # 0.0 X10^3/uL (0.0-0.1) 08/02/16 05:39 Absolute Nucleated RBC 0.0 /100WBC 08/02/16 05:39 Total Counted 100 08/01/16 03:55 Neutrophils % (Manual) 83 % (39-76) H 08/01/16 03:55 Band Neutrophils % 2 % (0-10) 08/01/16 03:55 Lymphocytes % (Manual) 13 % (13-43) 08/01/16 03:55 Monocytes % (Manual) 2 % (4-9) L 08/01/16 03:55 Eosinophils % (Manual) 1 % (0-6) 07/30/16 16:20 Plt Morphology Comment Normal (NORMAL) 08/01/16 03:55 RBC Morphology Normal (NORMAL) 08/01/16 03:55 ESR 36 MM/HOUR (0-15) H 08/02/16 05:39 Sodium 135 mmol/L (136-145) L 08/02/16 05:39 Corrected Sodium 136 mmol/L (136-145) 08/02/16 05:39 Potassium 4.2 mmol/L (3.5-5.1) 08/02/16 05:39 Chloride 103 mmol/L (98-107) 08/02/16 05:39 Carbon Dioxide 23.5 mmol/L (21-32) 08/02/16 05:39 BUN 12 mg/dL (7-18) 08/02/16 05:39 Creatinine 1.10 mg/dL (0.70-1.30) 08/02/16 05:39 Est GFR (MDRD) Af Amer > 60 (>60) 08/02/16 05:39 Est GFR (MDRD) Non-Af > 60 (>60) 08/02/16 05:39 Glucose 140 mg/dL (65-99) H 08/02/16 05:39 Calcium 8.7 mg/dL (8.5-10.1) 08/02/16 05:39 Corrected Calcium 9.7 mg/dL (8.5-10.1) 08/02/16 05:39 Total Bilirubin 0.70 mg/dL (0.2-1.0) 08/02/16 05:39 AST 12 Units/L (15-37) L 08/02/16 05:39 ALT 45 Units/L (12-78) 08/02/16 05:39 Alkaline Phosphatase 74 Units/L (46-116) 08/02/16 05:39 Creatine Kinase 32 Units/L (39-308) L 07/31/16 04:50 CK-MB (CK-2) < 1.0 ng/mL (0-4.0) 07/31/16 04:50 CK/CKMB % Calc 3.1 % (<4) 07/31/16 04:50 Troponin I < 0.02 ng/mL (0-1.5) 07/31/16 04:50 C-Reactive Protein 110.10 mg/L (0-3.0) H 08/02/16 05:39 Total Protein 6.2 g/dL (6.4-8.2) L 08/02/16 05:39 Albumin 2.7 g/dL (3.4-5.0) L 08/02/16 05:39 Globulin 3.5 g/dL (2.5-4.5) 08/02/16 05:39 Albumin/Globulin Ratio 0.8 Ratio (1.1-2.1) L 08/02/16 05:39 - Plan (1) Pneumonia Status: Acute Qualifiers: Pneumonia type: P Aspiration pneumonia type: A Laterality: L Lung location: L Plan: pneumonia protocol, duonebswith mucomyst, supplemental oxygen, levaquin IV , fortaz, mucinex (2) Hypoalbuminemia Status: Acute Plan: IV Albumin (3) Hypertension Status: Acute Qualifiers: Hypertension type: H Plan: continue home medication including norvasc (4) Diabetes mellitus, type 2 Status: Acute Qualifiers: Diabetes mellitus complication status: D Diabetes mellitus complication detail: D Diabetic retinopathy severity: D Proliferative retinopathy type: P Diabetes mellitus macular edema: D 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
[2016-08-02] MEDS: SYNTHROID 50 mcg TAB PO SCH (16:24)
[2016-08-02] MEDS: HumuLIN R SUBCUT PRN (16:42)
[2016-08-02] MEDS ORDERED: NS 1/2 1000 ML IV 1,000 ML IV ONE (18:12)
[2016-08-02] MEDS: SNACK - Diabetic Appropriate PO SCH (20:48)
[2016-08-02] MEDS: LEVEMIR SC SCH (20:50)
[2016-08-02] MEDS: KLONOPIN TAB 0.5 MG PO SCH (20:51)
[2016-08-02] MEDS: LIPITOR TAB 40 MG PO SCH (20:58)
[2016-08-03] MEDS: MUCOMYST 20% 200 MG/ML NEB SCH ×6 (01:11→20:54)
[2016-08-03] MEDS: DUONEB 0.5 MG/3 MG NEB SCH ×6 (01:11→20:54)
[2016-08-03] MEDS ORDERED: NS 1/2 1000 ML IV 1,000 ML IV ONE ×2 (04:39→17:04)
[2016-08-03] MEDS: NS 1/2 1000 ML IV 1,000 ML IV SCH ×2 (04:43→17:03)
[2016-08-03] MEDS: FORTAZ or TAZICEF INJ 1 GM in NS 50 ML IV + SPIKE MINIBAG* 50 ML IV SCH ×3 (05:54→21:08)
[2016-08-03] MEDS: AMARYL TAB 4 MG PO SCH (06:00)
[2016-08-03 06:18] LABS: BASOPHILS % (AUTO) 0.1 % (0.2-1.0); EOSINOPHILS # (AUTO) 0.1 x10^3/uL (0.0-0.2); EOSINOPHILS % (AUTO) 0.7 % (0.9-2.9); HEMOGLOBIN 12.9 g/dL (13.5-18.0); LYMPHOCYTES # (AUTO) 1.2 X10^3/uL (1.3-2.9); LYMPHOCYTES % (AUTO) 6.1 % (21.0-51.0); MEAN CORPUSCULAR HEMOGLOBIN 28.1 pg (27.0-34.0); MEAN CORPUSCULAR VOLUME 82.5 fL (80.0-100.0); MEAN PLATELET VOLUME 9.6 fL (7.4-11.0); MONOCYTES # (AUTO) 0.9 x10^3/uL (0.3-0.8); MONOCYTES % (AUTO) 4.6 % (0.0-13.0); NEUTROPHILS # (AUTO) 17.3 x10^3/uL (2.2-4.8); NEUTROPHILS % (AUTO) 88.5 % (42.0-75.0); PLATELET COUNT 217 X10^3/uL (150.0-450.0); RED CELL DISTRIBUTION WIDTH 14.1 % (11.6-16.5); WHITE BLOOD COUNT 19.5 X10^3/uL (3.6-10.0)
[2016-08-03 06:31] LABS: ALANINE AMINOTRANSFERASE 33 Units/L (12-78); ALBUMIN 2.9 g/dL (3.4-5.0); ALKALINE PHOSPHATASE 75 Units/L (46-116); ASPARTATE AMINO TRANSFERASE 9 Units/L (15-37); BLOOD UREA NITROGEN 13 mg/dL (7-18); CALCIUM 8.9 mg/dL (8.5-10.1); CHLORIDE 100 mmol/L (98-107); COR CA(FOR HYPOALB) 9.8 mg/dL (8.5-10.1); COR NA(FOR HYPERGLY) 138 mmol/L (136-145); GLUCOSE 138 mg/dL (65-99); SODIUM 137 mmol/L (136-145); TOTAL PROTEIN 6.8 g/dL (6.4-8.2); eGFR BLACK RACES > 60 (>60); eGFR NON BLACK RACES > 60 (>60)
[2016-08-03] MEDS: TYLENOL 325 MG TAB PO PRN (07:30)
[2016-08-03] MEDS: TAB-A-VITE PO SCH (09:28)
[2016-08-03] MEDS: ALBUMIN HUMAN 25%- 100ML 100 ML IV SCH (09:28)
[2016-08-03] MEDS: ZyrTEC TAB 10 MG PO SCH (09:28)
[2016-08-03] MEDS: ROBITUSSIN DM PO SCH ×4 (09:28→21:05)
[2016-08-03] MEDS: MUCINEX DM PO SCH ×2 (09:28→21:09)
[2016-08-03] MEDS: NORVASC TAB 5 MG PO SCH (09:28)
[2016-08-03] MEDS: PriLOSEC PO SCH ×2 (09:28→21:09)
[2016-08-03] MEDS: LEVAQUIN PREMIX IV 750 MG 750 MG/150 ML BAG IV SCH (09:30)
[2016-08-03] MEDS: GLUCOPHAGE XR PO SCH ×2 (09:44→21:07)
[2016-08-03] MEDS: [UNRECOGNIZED DRUG - OTHER] ENOSTRIL SCH ×2 (09:45→21:18)
[2016-08-03] MEDS: VANCOMYCIN 1 GM PREMIX (ADDVANTAGE) 250 ML IV SCH ×2 (11:30→21:09)
[2016-08-03] MEDS: HumuLIN R SUBCUT PRN (11:43)
--- NOTE | 2016-08-03 16:13 | PCM.PROG ---
Progress Note - Progress Note for Day of Date: 08/03/16 - Subjective Subjective: Patient is a 71yo male admitted with pneumonia, chest pain and shortness of breath. Patient is more alert this am physical exam reveal rhonchi on auscultation of lungs. Patient spike a fever again last night of 101.7. We are going to add vancomycin to his current treatment. Vital signs this am 99.9, 101. 22, 93% on 2l NC, 134/79. Labs are within normal limits with the exception of 19.5, RBC 4.60, Hgb 12.9, Hct 38.0, Neut% 88.5, Lymph% 6.1, Eos% 0.7, Baso% 0.1, Neut# 17.3, Lymph# 1.2, [place]# 0.9, Glucose 138, AST 9, Albumin 2.9, Albumin /Globulin Ratio 0.7. We will continue his current treatment with the addition of vancomycin and follow up with repeat labs in the am. - Past Medical Family Social History Past Med/Fam/Surg Hx: No changes since H&P Allergies: Allergies MS Codeine [Codeine] Allergy (Verified 07/30/16 15:46) Penicillins Allergy (Verified 07/30/16 15:46) Homatropine [From Hycodan] Adverse Reaction (Mild, Verified 07/31/16 04:58) Patient states that it makes him itch really bad. Hydrocodone [From Hycodan] Adverse Reaction (Mild, Verified 07/31/16 04:58) Patient states that it makes him itch really bad. - Review of Systems ROS: No change since H&P - Vital Signs and I&O's Vital Signs: 99.9, 101. 22, 93% on 2l NC, 134/79 Intake and Output: Intake & Output 08/01/16 08/02/16 08/03/16 08/04/16 11:59 11:59 11:59 11:59 Intake Total 2366 1560 1810 360 Output Total 1900 900 300 Balance 260 672 5933 360 - Physical Exam Oriented: Normal Eyes: Normal Ear: Normal Nose: Normal Throat: Normal Respiratory: Rhonchi (Scattered Rhonchi) Cardiovascular: Normal : Normal Auscultation: Bowel Sounds: Normal Tenderness: Normal Skin: Normal Musculoskeletal: Normal Psychiatric: Normal Mood Description: Calm, Appropriate Affect: Normal Speech Pattern: Clear, Appropriate - Laboratory and Diagnostics Result Diagrams: 08/03/16 04:45 08/03/16 04:45 Labs: Laboratory WBC 19.5 X10^3/uL (3.6-10.0) H 08/03/16 04:45 RBC 4.60 X10^6/uL (4.7-6.0) L 08/03/16 04:45 Hgb 12.9 g/dL (13.5-18.0) L 08/03/16 04:45 Hct 38.0 % (42.0-54.0) L 08/03/16 04:45 MCV 82.5 fL (80.0-100.0) 08/03/16 04:45 MCH 28.1 pg (27.0-34.0) 08/03/16 04:45 MCHC 34.0 g/dL (33.0-35.0) 08/03/16 04:45 RDW 14.1 % (11.6-16.5) 08/03/16 04:45 Plt Count 217 X10^3/uL (150.0-450.0) 08/03/16 04:45 Plt Count Comment Adequate (ADEQUATE) 08/01/16 03:55 MPV 9.6 fL (7.4-11.0) 08/03/16 04:45 Neut % 88.5 % (42.0-75.0) H 08/03/16 04:45 Lymph % 6.1 % (21.0-51.0) L 08/03/16 04:45 [place] % 4.6 % (0.0-13.0) 08/03/16 04:45 Eos % 0.7 % (0.9-2.9) L 08/03/16 04:45 Baso % 0.1 % (0.2-1.0) L 08/03/16 04:45 Neut # 17.3 x10^3/uL (2.2-4.8) H 08/03/16 04:45 Lymph # 1.2 X10^3/uL (1.3-2.9) L 08/03/16 04:45 [place] # 0.9 x10^3/uL (0.3-0.8) H 08/03/16 04:45 Eos # 0.1 x10^3/uL (0.0-0.2) 08/03/16 04:45 Baso # 0.0 X10^3/uL (0.0-0.1) 08/03/16 04:45 Absolute Nucleated RBC 0.1 /100WBC 08/03/16 04:45 Total Counted 100 08/01/16 03:55 Neutrophils % (Manual) 83 % (39-76) H 08/01/16 03:55 Band Neutrophils % 2 % (0-10) 08/01/16 03:55 Lymphocytes % (Manual) 13 % (13-43) 08/01/16 03:55 Monocytes % (Manual) 2 % (4-9) L 08/01/16 03:55 Eosinophils % (Manual) 1 % (0-6) 07/30/16 16:20 Plt Morphology Comment Normal (NORMAL) 08/01/16 03:55 RBC Morphology Normal (NORMAL) 08/01/16 03:55 ESR 36 MM/HOUR (0-15) H 08/02/16 05:39 Sodium 137 mmol/L (136-145) 08/03/16 04:45 Corrected Sodium 138 mmol/L (136-145) 08/03/16 04:45 Potassium 4.1 mmol/L (3.5-5.1) 08/03/16 04:45 Chloride 100 mmol/L (98-107) 08/03/16 04:45 Carbon Dioxide 24.0 mmol/L (21-32) 08/03/16 04:45 BUN 13 mg/dL (7-18) 08/03/16 04:45 Creatinine 1.10 mg/dL (0.70-1.30) 08/03/16 04:45 Est GFR (MDRD) Af Amer > 60 (>60) 08/03/16 04:45 Est GFR (MDRD) Non-Af > 60 (>60) 08/03/16 04:45 Glucose 138 mg/dL (65-99) H 08/03/16 04:45 Calcium 8.9 mg/dL (8.5-10.1) 08/03/16 04:45 Corrected Calcium 9.8 mg/dL (8.5-10.1) 08/03/16 04:45 Total Bilirubin 0.80 mg/dL (0.2-1.0) 08/03/16 04:45 AST 9 Units/L (15-37) L 08/03/16 04:45 ALT 33 Units/L (12-78) 08/03/16 04:45 Alkaline Phosphatase 75 Units/L (46-116) 08/03/16 04:45 Creatine Kinase 32 Units/L (39-308) L 07/31/16 04:50 CK-MB (CK-2) < 1.0 ng/mL (0-4.0) 07/31/16 04:50 CK/CKMB % Calc 3.1 % (<4) 07/31/16 04:50 Troponin I < 0.02 ng/mL (0-1.5) 07/31/16 04:50 C-Reactive Protein 110.10 mg/L (0-3.0) H 08/02/16 05:39 Total Protein 6.8 g/dL (6.4-8.2) 08/03/16 04:45 Albumin 2.9 g/dL (3.4-5.0) L 08/03/16 04:45 Globulin 3.9 g/dL (2.5-4.5) 08/03/16 04:45 Albumin/Globulin Ratio 0.7 Ratio (1.1-2.1) L 08/03/16 04:45 - Plan (1) Pneumonia Status: Acute Qualifiers: Pneumonia type: P Aspiration pneumonia type: A Laterality: L Lung location: L Plan: pneumonia protocol, duonebswith mucomyst, supplemental oxygen, levaquin IV , fortaz, mucinex (2) Hypoalbuminemia Status: Acute Plan: IV Albumin (3) Hypertension Status: Acute Qualifiers: Hypertension type: H Plan: continue home medication including norvasc (4) Diabetes mellitus, type 2 Status: Acute Qualifiers: Diabetes mellitus complication status: D Diabetes mellitus complication detail: D Diabetic retinopathy severity: D Proliferative retinopathy type: P Diabetes mellitus macular edema: D Diabetes mellitus meterman insulin use : D Laterality: L Chronic kidney disease stage: C Plan: continue home medication levemir and glimeperide OTBS ACHS with regular insulin sliding quality process auditor coverage PRN Hyperglycemia
[2016-08-03] MEDS: SYNTHROID 50 mcg TAB PO SCH (17:05)
[2016-08-03 17:22] LABS: BILIRUBIN,URINE NEGATIVE (NEGATIVE); BLOOD/HEMOGLOBIN,URINE 1+ (NEGATIVE); GLUCOSE, URINE NEGATIVE (NEGATIVE); KETONES,URINE NEGATIVE (NEGATIVE); LEUKOCYTE ESTERASE ,URINE NEGATIVE (NEGATIVE); NITRITES,URINE NEGATIVE (NEGATIVE); PROTEIN,URINE 2+ (NEGATIVE); UROBILINOGEN,URINE NORMAL (NORMAL)
[2016-08-03 17:54] LABS: APPEARANCE,URINE CLEAR (CLEAR); COLOR,URINE YELLOW (YELLOW)
[2016-08-03 17:55] LABS: BACTERIA,URINE NEGATIVE /HPF (NEGATIVE); HYALINE CASTS, URINE RARE /LPF (NEGATIVE); MUCUS,URINE FEW /HPF (NEGATIVE); RBC,URINE RARE /HPF (NEGATIVE); SQUAMOUS EPITHELIAL CELL,UR RARE /HPF (NEGATIVE)
[2016-08-03] MEDS: TESSALON PERLES PO PRN (19:59)
[2016-08-03] MEDS: MORPHINE SULFATE INJ 2 MG IVP PRN (20:00)
[2016-08-03] MEDS: COLACE CAP 100 MG PO SCH (21:08)
[2016-08-03] MEDS: LIPITOR TAB 40 MG PO SCH (21:09)
[2016-08-03] MEDS: SNACK - Diabetic Appropriate PO SCH (21:10)
[2016-08-03] MEDS: KLONOPIN TAB 0.5 MG PO SCH (21:11)
[2016-08-03] MEDS: LEVEMIR SC SCH (21:11)
[2016-08-04] MEDS: TYLENOL 325 MG TAB PO PRN (00:41)
[2016-08-04] MEDS: MUCOMYST 20% 200 MG/ML NEB SCH ×6 (00:47→20:19)
[2016-08-04] MEDS: DUONEB 0.5 MG/3 MG NEB SCH ×6 (00:47→20:19)
[2016-08-04 05:43] LABS: ALANINE AMINOTRANSFERASE 37 Units/L (12-78); ALBUMIN 2.8 g/dL (3.4-5.0); ALKALINE PHOSPHATASE 76 Units/L (46-116); ASPARTATE AMINO TRANSFERASE 18 Units/L (15-37); BASOPHILS % (AUTO) 0.1 % (0.2-1.0); BLOOD UREA NITROGEN 11 mg/dL (7-18); CALCIUM 8.8 mg/dL (8.5-10.1); CARBON DIOXIDE 23.8 mmol/L (21-32); CHLORIDE 104 mmol/L (98-107); COR CA(FOR HYPOALB) 9.8 mg/dL (8.5-10.1); COR NA(FOR HYPERGLY) 140 mmol/L (136-145); CREATININE 1.21 mg/dL (0.70-1.30); EOSINOPHILS # (AUTO) 0.2 x10^3/uL (0.0-0.2); EOSINOPHILS % (AUTO) 1.5 % (0.9-2.9); GLUCOSE 118 mg/dL (65-99); HEMATOCRIT 35.1 % (42.0-54.0); HEMOGLOBIN 11.9 g/dL (13.5-18.0); LYMPHOCYTES # (AUTO) 1.7 X10^3/uL (1.3-2.9); MEAN CORPUSCULAR HEMOGLOBIN 27.9 pg (27.0-34.0); MEAN CORPUSCULAR HGB CONC 33.7 g/dL (33.0-35.0); MEAN CORPUSCULAR VOLUME 82.8 fL (80.0-100.0); MEAN PLATELET VOLUME 9.5 fL (7.4-11.0); MONOCYTES % (AUTO) 6.7 % (0.0-13.0); NEUTROPHILS # (AUTO) 12.2 x10^3/uL (2.2-4.8); NEUTROPHILS % (AUTO) 80.7 % (42.0-75.0); PLATELET COUNT 197 X10^3/uL (150.0-450.0); RED BLOOD COUNT 4.25 X10^6/uL (4.7-6.0); RED CELL DISTRIBUTION WIDTH 14.1 % (11.6-16.5); SODIUM 140 mmol/L (136-145); TOTAL PROTEIN 6.7 g/dL (6.4-8.2); WHITE BLOOD COUNT 15.1 X10^3/uL (3.6-10.0); eGFR BLACK RACES > 60 (>60); eGFR NON BLACK RACES > 60 (>60)
[2016-08-04] MEDS: FORTAZ or TAZICEF INJ 1 GM in NS 50 ML IV + SPIKE MINIBAG* 50 ML IV SCH (06:02)
[2016-08-04] MEDS: HumuLIN R SUBCUT PRN ×2 (06:02→13:16)
[2016-08-04] MEDS: NS 1/2 1000 ML IV 1,000 ML IV SCH ×3 (06:05→21:13)
[2016-08-04] MEDS ORDERED: NS 1/2 1000 ML IV 1,000 ML IV ONE ×2 (06:08→20:45)
--- NOTE | 2016-08-04 06:22 | RAD ---
HISTORY: Follow up pneumonia Study: Chest one view Comparison: August 02, 2016 Findings: The heart is enlarged. No congestive heart failure is noted. The right lung is clear with the except ion of mild subsegmental atelectasis in the right lung base. Left upper lung field is clear. Now vis ualized is increased density in the left lung base representing either pneumonia or atelectasis. Fol low up of this area is recommended. The bony thorax is unremarkable peer E IMPRESSION: Interval development since the prior examination of abnormal parenchymal density in the left lung ba se which could represent pneumonia, atelectasis, or both. Minimal subsegmental atelectasis right lung base Cardiomegaly without congestive heart failure Reported By:
[2016-08-04] MEDS: AMARYL TAB 4 MG PO SCH (06:30)
[2016-08-04 07:15] LABS: ERYTHROCYTE SEDIMENTATION RATE 87 MM/HOUR (0-15)
[2016-08-04] MEDS: ZyrTEC TAB 10 MG PO SCH (08:39)
[2016-08-04] MEDS: MUCINEX DM PO SCH ×2 (08:39→21:16)
[2016-08-04] MEDS: TAB-A-VITE PO SCH (08:39)
[2016-08-04] MEDS: GLUCOPHAGE XR PO SCH ×2 (08:39→21:14)
[2016-08-04] MEDS: ALBUMIN HUMAN 25%- 100ML 100 ML IV SCH (08:40)
[2016-08-04] MEDS: PriLOSEC PO SCH ×2 (08:40→21:16)
[2016-08-04] MEDS: VANCOMYCIN 1 GM PREMIX (ADDVANTAGE) 250 ML IV SCH ×2 (08:40→21:25)
[2016-08-04] MEDS: LEVAQUIN PREMIX IV 750 MG 750 MG/150 ML BAG IV SCH (08:40)
[2016-08-04] MEDS: NORVASC TAB 5 MG PO SCH (08:40)
[2016-08-04] MEDS: ROBITUSSIN DM PO SCH ×5 (08:40→21:15)
[2016-08-04] MEDS: [UNRECOGNIZED DRUG - OTHER] ENOSTRIL SCH ×2 (08:48→21:19)
[2016-08-04] MEDS ORDERED: TORADOL 30 MG VIAL IVP PRN (10:12)
[2016-08-04 10:58] LABS: CREATINE KINASE 20 Units/L (39-308); CREATINE KINASE MB < 1.0 ng/mL (0-4.0); TROPONIN I < 0.02 ng/mL (0-1.5)
[2016-08-04] MEDS ORDERED: ZOSYN VIAL 4.5 GM 4.5 GM in NS 100 ML IV + SPIKE MINIBAG* 100 ML IV SCH (11:00)
[2016-08-04] MEDS: ZOSYN VIAL 4.5 GM 4.5 GM in NS 100 ML IV + SPIKE MINIBAG* 100 ML IV SCH ×2 (13:17→21:17)
[2016-08-04] MEDS: MILK OF MAGNESIA PO PRN ×2 (13:17→21:14)
[2016-08-04] MEDS: NYSTATIN SUSP MT SCH ×3 (14:03→21:25)
[2016-08-04] MEDS: SYNTHROID 50 mcg TAB PO SCH (16:44)
[2016-08-04] MEDS: PULMICORT NEB TX 0.5 MG NEB SCH (20:19)
[2016-08-04 20:34] LABS: CREATININE 1.41 mg/dL (0.70-1.30); VANCOMYCIN,TROUGH 12.9 ug/mL (15-20)
[2016-08-04] MEDS: LEVEMIR SC SCH (21:15)
[2016-08-04] MEDS: LIPITOR TAB 40 MG PO SCH (21:15)
[2016-08-04] MEDS: COLACE CAP 100 MG PO SCH (21:16)
[2016-08-04] MEDS: SNACK - Diabetic Appropriate PO SCH (21:18)
[2016-08-04] MEDS: KLONOPIN TAB 0.5 MG PO SCH (21:21)
[2016-08-05] MEDS: TESSALON PERLES PO PRN (00:01)
[2016-08-05] MEDS: MUCOMYST 20% 200 MG/ML NEB SCH ×6 (00:51→20:33)
[2016-08-05] MEDS: DUONEB 0.5 MG/3 MG NEB SCH ×6 (00:51→20:33)
[2016-08-05] MEDS: MORPHINE SULFATE INJ 2 MG IVP PRN (03:10)
[2016-08-05 05:31] LABS: BASOPHILS % (AUTO) 0.4 % (0.2-1.0); EOSINOPHILS # (AUTO) 0.3 x10^3/uL (0.0-0.2); EOSINOPHILS % (AUTO) 2.2 % (0.9-2.9); HEMATOCRIT 34.2 % (42.0-54.0); HEMOGLOBIN 11.4 g/dL (13.5-18.0); LYMPHOCYTES # (AUTO) 1.2 X10^3/uL (1.3-2.9); LYMPHOCYTES % (AUTO) 9.6 % (21.0-51.0); MEAN CORPUSCULAR HEMOGLOBIN 27.9 pg (27.0-34.0); MEAN CORPUSCULAR HGB CONC 33.5 g/dL (33.0-35.0); MEAN CORPUSCULAR VOLUME 83.3 fL (80.0-100.0); MEAN PLATELET VOLUME 9.1 fL (7.4-11.0); MONOCYTES % (AUTO) 8.1 % (0.0-13.0); NEUTROPHILS % (AUTO) 79.7 % (42.0-75.0); PLATELET COUNT 219 X10^3/uL (150.0-450.0); RED CELL DISTRIBUTION WIDTH 14.1 % (11.6-16.5); WHITE BLOOD COUNT 12.5 X10^3/uL (3.6-10.0)
[2016-08-05 05:34] LABS: ALANINE AMINOTRANSFERASE 109 Units/L (12-78); ALBUMIN 2.8 g/dL (3.4-5.0); ALKALINE PHOSPHATASE 84 Units/L (46-116); ASPARTATE AMINO TRANSFERASE 78 Units/L (15-37); BLOOD UREA NITROGEN 17 mg/dL (7-18); CALCIUM 8.7 mg/dL (8.5-10.1); CARBON DIOXIDE 24.3 mmol/L (21-32); CHLORIDE 103 mmol/L (98-107); COR CA(FOR HYPOALB) 9.7 mg/dL (8.5-10.1); COR NA(FOR HYPERGLY) 140 mmol/L (136-145); CREATININE 1.29 mg/dL (0.70-1.30); GLUCOSE 192 mg/dL (65-99); SODIUM 138 mmol/L (136-145); TOTAL PROTEIN 6.6 g/dL (6.4-8.2); eGFR BLACK RACES > 60 (>60); eGFR NON BLACK RACES 58 (>60)
[2016-08-05] MEDS: ZOSYN VIAL 4.5 GM 4.5 GM in NS 100 ML IV + SPIKE MINIBAG* 100 ML IV SCH ×3 (05:47→21:30)
[2016-08-05] MEDS: HumuLIN R SUBCUT PRN ×2 (05:53→16:57)
[2016-08-05] MEDS: AMARYL TAB 4 MG PO SCH (06:00)
[2016-08-05] MEDS: PULMICORT NEB TX 0.5 MG NEB SCH ×2 (08:54→20:33)
[2016-08-05] MEDS: NYSTATIN SUSP MT SCH ×4 (09:28→21:30)
[2016-08-05] MEDS: ZyrTEC TAB 10 MG PO SCH (09:29)
[2016-08-05] MEDS: GLUCOPHAGE XR PO SCH ×2 (09:29→21:29)
[2016-08-05] MEDS: TAB-A-VITE PO SCH (09:29)
[2016-08-05] MEDS: MUCINEX DM PO SCH ×2 (09:29→21:30)
[2016-08-05] MEDS: NORVASC TAB 5 MG PO SCH (09:29)
[2016-08-05] MEDS: ALBUMIN HUMAN 25%- 100ML 100 ML IV SCH (09:30)
[2016-08-05] MEDS: PriLOSEC PO SCH ×2 (09:30→21:31)
[2016-08-05] MEDS: [UNRECOGNIZED DRUG - OTHER] ENOSTRIL SCH ×2 (09:33→21:40)
[2016-08-05] MEDS: ROBITUSSIN DM PO SCH ×4 (09:35→22:58)
[2016-08-05] MEDS: VANCOMYCIN 1 GM PREMIX (ADDVANTAGE) 250 ML IV SCH ×2 (09:35→21:53)
[2016-08-05] MEDS: NS 1/2 1000 ML IV 1,000 ML IV SCH ×3 (10:50→22:02)
[2016-08-05] MEDS: SYNTHROID 50 mcg TAB PO SCH (16:57)
[2016-08-05] MEDS: SNACK - Diabetic Appropriate PO SCH (20:00)
[2016-08-05] MEDS: COLACE CAP 100 MG PO SCH (21:30)
[2016-08-05] MEDS: LIPITOR TAB 40 MG PO SCH (21:30)
[2016-08-05] MEDS: KLONOPIN TAB 0.5 MG PO SCH (21:31)
[2016-08-05] MEDS: LEVEMIR SC SCH (21:33)
[2016-08-05] MEDS ORDERED: NS 1/2 1000 ML IV 1,000 ML IV ONE (22:01)
[2016-08-06] MEDS: DUONEB 0.5 MG/3 MG NEB SCH ×6 (00:59→21:07)
[2016-08-06] MEDS: MUCOMYST 20% 200 MG/ML NEB SCH ×6 (01:00→21:07)
[2016-08-06 05:14] LABS: ALANINE AMINOTRANSFERASE 115 Units/L (12-78); ALBUMIN 2.8 g/dL (3.4-5.0); ALKALINE PHOSPHATASE 79 Units/L (46-116); ASPARTATE AMINO TRANSFERASE 58 Units/L (15-37); BLOOD UREA NITROGEN 10 mg/dL (7-18); CALCIUM 8.8 mg/dL (8.5-10.1); CARBON DIOXIDE 24.4 mmol/L (21-32); CHLORIDE 107 mmol/L (98-107); COR CA(FOR HYPOALB) 9.8 mg/dL (8.5-10.1); CREATININE 1.15 mg/dL (0.70-1.30); GLUCOSE 102 mg/dL (65-99); SODIUM 141 mmol/L (136-145); TOTAL PROTEIN 6.5 g/dL (6.4-8.2); eGFR BLACK RACES > 60 (>60); eGFR NON BLACK RACES > 60 (>60)
[2016-08-06 05:33] LABS: BASOPHILS % (AUTO) 0.2 % (0.2-1.0); EOSINOPHILS # (AUTO) 0.3 x10^3/uL (0.0-0.2); EOSINOPHILS % (AUTO) 2.7 % (0.9-2.9); HEMATOCRIT 32.6 % (42.0-54.0); LYMPHOCYTES # (AUTO) 1.4 X10^3/uL (1.3-2.9); LYMPHOCYTES % (AUTO) 12.6 % (21.0-51.0); MEAN CORPUSCULAR HGB CONC 33.8 g/dL (33.0-35.0); MEAN CORPUSCULAR VOLUME 82.9 fL (80.0-100.0); MEAN PLATELET VOLUME 8.5 fL (7.4-11.0); MONOCYTES # (AUTO) 0.9 x10^3/uL (0.3-0.8); MONOCYTES % (AUTO) 8.5 % (0.0-13.0); NEUTROPHILS # (AUTO) 8.2 x10^3/uL (2.2-4.8); PLATELET COUNT 234 X10^3/uL (150.0-450.0); RED BLOOD COUNT 3.94 X10^6/uL (4.7-6.0); RED CELL DISTRIBUTION WIDTH 13.8 % (11.6-16.5); WHITE BLOOD COUNT 10.8 X10^3/uL (3.6-10.0)
[2016-08-06] MEDS: ZOSYN VIAL 4.5 GM 4.5 GM in NS 100 ML IV + SPIKE MINIBAG* 100 ML IV SCH ×3 (06:12→21:26)
[2016-08-06] MEDS: AMARYL TAB 4 MG PO SCH (06:12)
[2016-08-06] MEDS: NS 1/2 1000 ML IV 1,000 ML IV SCH ×2 (07:58→14:52)
[2016-08-06] MEDS: ALBUMIN HUMAN 25%- 100ML 100 ML IV SCH (08:30)
[2016-08-06] MEDS: GLUCOPHAGE XR PO SCH ×2 (08:33→21:28)
[2016-08-06] MEDS: VANCOMYCIN 1 GM PREMIX (ADDVANTAGE) 250 ML IV SCH ×2 (08:33→21:35)
[2016-08-06] MEDS: TAB-A-VITE PO SCH (08:33)
[2016-08-06] MEDS: ROBITUSSIN DM PO SCH ×4 (08:33→21:27)
[2016-08-06] MEDS: ZyrTEC TAB 10 MG PO SCH (08:33)
[2016-08-06] MEDS: PriLOSEC PO SCH ×2 (08:33→21:29)
[2016-08-06] MEDS: MUCINEX DM PO SCH ×2 (08:33→21:29)
[2016-08-06] MEDS: NORVASC TAB 5 MG PO SCH (08:34)
[2016-08-06] MEDS: [UNRECOGNIZED DRUG - OTHER] ENOSTRIL SCH ×2 (08:46→21:34)
[2016-08-06] MEDS: NYSTATIN SUSP MT SCH ×5 (08:47→22:49)
[2016-08-06] MEDS: PULMICORT NEB TX 0.5 MG NEB SCH ×2 (08:53→21:07)
--- NOTE | 2016-08-06 12:06 | RAD ---
HISTORY: Pneumonia, shortness breath and weakness Study: AP chest Comparison: 08/04/2016 Findings: Bibasilar airspace opacities are again noted but have mildly improved since previous exam. Cardiac silhouette is mildly enlarged. No large pleural effusions are demonstrated. IMPRESSION: 1. Bibasilar airspace opacities, mildly improved since previous exam. 2. Mild enlargement of the cardiac silhouette.. Reported By:
[2016-08-06] MEDS: TYLENOL 325 MG TAB PO PRN (13:49)
[2016-08-06] MEDS ORDERED: NS 1/2 1000 ML IV 1,000 ML IV ONE (14:36)
[2016-08-06] MEDS: SYNTHROID 50 mcg TAB PO SCH (17:28)
[2016-08-06] MEDS: HumuLIN R SUBCUT PRN ×2 (18:31→21:25)
[2016-08-06] MEDS: SNACK - Diabetic Appropriate PO SCH (19:50)
[2016-08-06 21:07] LABS: CREATININE 1.2 mg/dL (0.70-1.30); VANCOMYCIN,TROUGH 12.3 ug/mL (15-20)
[2016-08-06] MEDS: LEVEMIR SC SCH (21:27)
[2016-08-06] MEDS: LIPITOR TAB 40 MG PO SCH (21:28)
[2016-08-06] MEDS: COLACE CAP 100 MG PO SCH (21:28)
[2016-08-07] MEDS: DUONEB 0.5 MG/3 MG NEB SCH ×3 (00:28→13:26)
[2016-08-07] MEDS: MUCOMYST 20% 200 MG/ML NEB SCH ×3 (00:28→13:26)
[2016-08-07 05:21] LABS: ALANINE AMINOTRANSFERASE 141 Units/L (12-78); ALKALINE PHOSPHATASE 77 Units/L (46-116); ASPARTATE AMINO TRANSFERASE 74 Units/L (15-37); BLOOD UREA NITROGEN 8 mg/dL (7-18); CALCIUM 8.9 mg/dL (8.5-10.1); CHLORIDE 105 mmol/L (98-107); COR CA(FOR HYPOALB) 9.7 mg/dL (8.5-10.1); COR NA(FOR HYPERGLY) 139 mmol/L (136-145); CREATININE 1.04 mg/dL (0.70-1.30); GLUCOSE 128 mg/dL (65-99); SODIUM 138 mmol/L (136-145); TOTAL PROTEIN 6.8 g/dL (6.4-8.2); eGFR BLACK RACES > 60 (>60); eGFR NON BLACK RACES > 60 (>60)
[2016-08-07 05:22] LABS: BASOPHILS % (AUTO) 0.4 % (0.2-1.0); EOSINOPHILS # (AUTO) 0.2 x10^3/uL (0.0-0.2); EOSINOPHILS % (AUTO) 2.1 % (0.9-2.9); HEMATOCRIT 32.4 % (42.0-54.0); HEMOGLOBIN 10.7 g/dL (13.5-18.0); LYMPHOCYTES # (AUTO) 1.4 X10^3/uL (1.3-2.9); LYMPHOCYTES % (AUTO) 11.9 % (21.0-51.0); MEAN CORPUSCULAR HGB CONC 33.1 g/dL (33.0-35.0); MEAN CORPUSCULAR VOLUME 84.4 fL (80.0-100.0); MEAN PLATELET VOLUME 8.9 fL (7.4-11.0); MONOCYTES % (AUTO) 8.6 % (0.0-13.0); NEUTROPHILS # (AUTO) 8.8 x10^3/uL (2.2-4.8); PLATELET COUNT 226 X10^3/uL (150.0-450.0); RED BLOOD COUNT 3.84 X10^6/uL (4.7-6.0); RED CELL DISTRIBUTION WIDTH 14.3 % (11.6-16.5); WHITE BLOOD COUNT 11.4 X10^3/uL (3.6-10.0)
[2016-08-07] MEDS: AMARYL TAB 4 MG PO SCH (06:05)
[2016-08-07 06:06] LABS: ERYTHROCYTE SEDIMENTATION RATE 93 MM/HOUR (0-15)
[2016-08-07] MEDS: ZOSYN VIAL 4.5 GM 4.5 GM in NS 100 ML IV + SPIKE MINIBAG* 100 ML IV SCH ×2 (06:06→14:23)
[2016-08-07] MEDS ORDERED: NS 1/2 1000 ML IV 1,000 ML IV ONE (09:15)
[2016-08-07] MEDS: VANCOMYCIN 1 GM PREMIX (ADDVANTAGE) 250 ML IV SCH (09:19)
[2016-08-07] MEDS: ALBUMIN HUMAN 25%- 100ML 100 ML IV SCH (09:19)
[2016-08-07] MEDS: NS 1/2 1000 ML IV 1,000 ML IV SCH (09:20)
[2016-08-07] MEDS: PriLOSEC PO SCH (09:21)
[2016-08-07] MEDS: NYSTATIN SUSP MT SCH ×2 (09:21→13:15)
[2016-08-07] MEDS: GLUCOPHAGE XR PO SCH (09:21)
[2016-08-07] MEDS: MUCINEX DM PO SCH (09:21)
[2016-08-07] MEDS: NORVASC TAB 5 MG PO SCH (09:21)
[2016-08-07] MEDS: TAB-A-VITE PO SCH (09:21)
[2016-08-07] MEDS: ZyrTEC TAB 10 MG PO SCH (09:23)
[2016-08-07] MEDS: [UNRECOGNIZED DRUG - OTHER] ENOSTRIL SCH (09:24)
[2016-08-07] MEDS: ROBITUSSIN DM PO SCH ×2 (09:24→13:15)
[2016-08-07] MEDS: PULMICORT NEB TX 0.5 MG NEB SCH (09:33)
[2016-08-07] MEDS: HumuLIN R SUBCUT PRN (11:56)
[2016-08-07 13:30] VITALS: BP 149/81
--- NOTE | 2016-08-07 20:23 | PCM.PROG ---
Progress Note - Progress Note for Day of Date: 08/04/16 - Subjective Subjective: Patient states he is feeling somewhat better this am. He continue to spike a fever with the high last night being 101.7. Since patient was still not responding to treatment and fever continue to stay elevated Levaquin and fotaz was discontinue on 08/04 and zosyn was added in addition to vancomycin. Patient also complained of left shoulder pain and we are going to start on toradol 30mg IV q6hr PRN. Vital signs this am 99.7, 93, 18. 94%, 129/66. Labs within normal limits with the exception of WBC 15.1, RBC 4.25, Hgb 11.9, Hct 35.1, Neut% 79.7, Lymph% 11.0, Baso% 0.1, Neut# 12.2, [place]# 1.0, ESR 87, Glucose 118, CRP 213.80, Albumin 2.8, Albumin/Globulin Ratio 0.7. Chest xray this am shows interval development since prioir examination of abnormal parenchymal density in the left lung base which could represent pneumonia, atelectasis or both. Minimal subsegmental atelectasis right lung base, cardiomegaly without congestive heart failure. We will follow up with patient in the am with repeat labs and Chest xray. - Past Medical Family Social History Past Med/Fam/Surg Hx: No changes since H&P Allergies: Allergies MS Codeine [Codeine] Allergy (Verified 07/30/16 15:46) MS Penicillins [Penicillins] Allergy (Verified 07/30/16 15:46) MS Homatropine [From Hycodan] Adverse Reaction (Mild, Verified 07/31/16 04:58) Patient states that it makes him itch really bad. MS Hydrocodone [From Hycodan] Adverse Reaction (Mild, Verified 07/31/16 04:58) Patient states that it makes him itch really bad. - Review of Systems ROS: No change since H&P - Vital Signs and I&O's Vital Signs: 99.7, 93, 18. 94%, 129/66. - Physical Exam Oriented: Normal Eyes: Normal Ear: Normal Nose: Normal Throat: Normal Respiratory: Rhonchi (Scattered Rhonchi) Cardiovascular: Normal : Normal Auscultation: Bowel Sounds: Normal Palpation: Normal Tenderness: Normal Skin: Normal Musculoskeletal: Normal Psychiatric: Normal Mood Description: Calm, Appropriate Affect: Normal Speech Pattern: Clear, Appropriate - Laboratory and Diagnostics Result Diagrams: 08/07/16 04:15 08/07/16 04:15 Labs: Labs within normal limits with the exception of WBC 15.1, RBC 4.25, Hgb 11.9, Hct 35.1, Neut% 79.7, Lymph% 11.0, Baso% 0.1, Neut# 12.2, [place]# 1.0, ESR 87, Glucose 118, CRP 213.80, Albumin 2.8, Albumin/Globulin Ratio 0.7. Radiology Reviewed: Yes - Plan (1) Pneumonia Status: Acute Qualifiers: Pneumonia type: P Aspiration pneumonia type: A Laterality: L Lung location: L Plan: pneumonia protocol, duonebswith mucomyst, supplemental oxygen, Zosyn and vancomycin IV (2) Hypoalbuminemia Status: Acute Plan: IV Albumin (3) Hypertension Status: Acute Qualifiers: Hypertension type: H Plan: continue home medication including norvasc (4) Diabetes mellitus, type 2 Status: Acute Qualifiers: Diabetes mellitus complication status: D Diabetes mellitus complication detail: D Diabetic retinopathy severity: D Proliferative retinopathy type: P Diabetes mellitus macular edema: D 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
--- NOTE | 2016-08-07 20:26 | DR.CARTERD ---
- Discharge Summary for: Discharge Summary for Date of:: 08/07/16 - Admission Date Date of Admission: 07/30/16 - Admission Diagnoses Admission Diagnosis: Pneumonia. Chest Pain. Shortness of breath. COPD. Diabetes Mellitus Type 2. GERD. Hypertension. Hypothyroidism - Discharge Date Discharge Date: 08/07/16 - Discharge Diagnoses Discharge Diagnosis: Positive sputum culture for Acinetobacter aumanii/Haemoly and klebsiella pneumoniae Pneumonia Chest Pain Shortness of breath COPD Diabetes Mellitus Type 2 GERD Hypertension Hypothyroidism - Hospital Course Hospital Course: Patient is a 71 yo white male who presented to the emergency room with complaints of fever, cough, congestion and chest pain which has been going on for one and half weeks, he has been treated outpatient with oral antibiotics and steroids and has not gotten any better he was seen at [facility]. Patient has a past medical history of COPD, DM, Dyslipidemia, GERD and Hyperthyroidism. Patients physical exam revealed resp distress with bilateral wheezing and rhochi. Patient was started on pneumonia protocol including 1/2NS @75, Duonebs, Levaquin and supplemental oxygen. Patient WBC on arrival was 24.1 and fever 100.0. Patiet was treated for hypoalbuminemia with IV Albumin daily. Mucomyst and budesonide added to nebulizer treatments as well as mucinex PO. His physical exam continue to reveal coarse rhochi bilateral. Patient complained of not being able to sleep at night and klonopin was added and helped him sleep. WBC increased to 25 and spiked a fever of 102.2 and fortaz 1gm IV q8hr was added in addition to his Levaquin. On 08/02 his sputum grew out Acinetobacter aumanii/Haemoly and klebsiella pneumoniae which are both sensitive fortaz and Levaquin. Patient continue spiking a fever of 101.7 so vancomycin 1gm IV q12hr was added in addition to Levaquin and fortaz. Since patient was still not responding to treatment and fever continue to stay elevated Levaquin and fotaz was discontinue on 08/04 and zosyn was added in addition to vancomycin. Patient also complained of shoulder pain for which he was given Toradol 30mg IV q6hr PRN. Patient ran a low grade fever during the night of the weekend but was did not have any significant spikes in fever. Today his WBC is down to 11.4. Vital signs this am 100.1, 98, 18, 92%, 150/67. Labs within normal limitis with the exception of WBC 1.4, RBC 3.84, hgb 10.7, Hct 32.4, Neut% 77.0, Lymph% 11.9, Neut# 8.8, [place]# 1.0, ESR 93, Glucose 128, AST 74, ALT 141, CRP 93, Albumin 3.0 , Albumin/Globulin Ratio 0.8. We are going to discharge him home in stable condition to follow up in 1 week. Patient stated that he has been having problems with reflux at home not well controlled with Prilosec. Patient is to continue home medications with the addition of omeprazole 40mg PO BID, Zantac 150mg PO BID, Bactrim BID for 2 weeks and is to be off of work for 2 weeks. Labs: Labs within normal limitis with the exception of WBC 1.4, RBC 3.84, hgb 10.7, Hct 32.4, Neut% 77.0, Lymph% 11.9, Neut# 8.8, [place]# 1.0, ESR 93, Glucose 128, AST 74, ALT 141, CRP 93, Albumin 3.0, Albumin/Globulin Ratio 0.8. - Discharge Medications Discharge Medications: Amlodipine Besylate [NORVASC 5 MG *] 5 mg PO DAILY 07/30/16 [History] Atorvastatin Calcium [LIPITOR Tab 40 mg *] 40 mg PO HS 07/30/16 [History] Azelastine HCl-Fluticasone Pro [Dymista 137-50 Mcg/Act] 2 spr ENOSTRIL BID 07/30 [History] Budesonide-Formoterol [SYMBICORT INH 160-4.5 mcg (10.2 g) *] 1 puff IN Q12H 01/05 [History] Cetirizine HCl [Zyrtec Allergy] 10 mg PO DAILY 07/30/16 [History] Glimepiride [Amaryl 1 mg] 1 mg PO DAILY 07/30/16 [History] Levothyroxine Sodium [SYNTHROID 50 mcg *] 1 tab PO DAILYAC 07/30/16 [History] Metformin HCl [Metformin HCl ER] 500 mg PO BID 07/30/16 [History] Misc Home Med [Patient's Home Medication] 1 ea PO Q6H PRN 07/30/16 [History] Multiple Vitamin [Multi Vitamin] 1 tab PO DAILY 07/30/16 [History] Multiple Vitamins W/ Minerals [Vision Formula Eye Health] 1 cap PO DAILY [History] Insulin Detemir (Levemir) [LEVEMIR INSULIN *] 60 units SC HS 07/31/16 [History] Omeprazole [PRILOSEC 20 MG *] 40 mg PO BID #120 cap 08/07/16 [Rx] Ranitidine HCl [ZANTAC TAB 150 MG *] 150 mg PO BID #60 tab 08/07/16 [Rx] Sulfamethoxazole-Trimethoprim [BACTRIM DS TAB 800/160 MG *] 1 tab PO BID #28 tab 08/07/16 [Rx] - Discharge Disposition Discharge Disposition: Home follow up in 1 week
== END 2016-08-07 15:20 | disposition home or self-care (01) | DRG 194 ==
LOC: ER 15:59 → MED/SURG 18:36
PROVIDERS: ADMIT Obstetrics & Gynecology Obstetrics; ATTEND Internal Medicine
DX: J16.8 Pneumonia due to other specified infectious organisms (principal); J44.1 Chronic obstructive pulmonary disease with (acute) exacerbation; R06.02 Shortness of breath; R07.82 Intercostal pain; R94.31 Abnormal electrocardiogram [ECG] [EKG]; E11.65 Type 2 diabetes mellitus with hyperglycemia; E78.2 Mixed hyperlipidemia; K21.9 Gastro-esophageal reflux disease without esophagitis; I10 Essential (primary) hypertension; E05.80 Other thyrotoxicosis without thyrotoxic crisis or storm; M25.512 Pain in left shoulder; B96.1 Klebsiella pneumoniae [K. pneumoniae] as the cause of diseases classified elsewhere; B96.89 Other specified bacterial agents as the cause of diseases classified elsewhere; R26.89 Other abnormalities of gait and mobility
CPT/HCPCS: 36415; 71010; 71020; 80053; 80202; 81001; 82550; 82553; 82565; 82947; 84484; 85025; 85652; 86140; 87040; 87070; 87077; 87186; 87205; 93005; 93010; 94640; 94760; 96365; 96374; 96375; 99231; 99284; A4222; P9047; 1956; J0713; J1815; J1885; J1956; J2270; J2543; J2930; J3370; J7608; J7620; J7626